=== PATIENT | female | born 1950 | race Hispanic/Latino ===

== ENCOUNTER 2019-07-21 18:06 | Emergency (ER) | payer BC ==
[~2019-07-21] VITALS: Ht 144.8 cm; Wt 60.8 kg
--- OUTSIDE RECORDS SUMMARY | 2019-07-21 18:10 | XMS REPORT ---
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 Allergies, Adverse Reactions, Alerts Allergy Name Allergy Type Status Severity Reaction(s) Onset Date Inactive Date Treating Clinician Comments heparin DA Active SV 2019-06-26 00:00:00 heparin DA Active SV 2019-06-23 00:00:00 No Known Allergies DA Active U 2019-06-08 00:00:00 No Known Allergies DA Active U 2014-03-23 00:00:00 Medications This patient has no known medications. Results Test Description Test Time Test Comments Text Results Atomic Results Result Comments GLUBED 2019-06-29 18:39:00 GLUBED (test code=GLUBED) 182 mg/dL 74-106 Performed by certified leak operator paraffin plant at [facility] [id number] 13:12:00* Test Item Value Reference Range Comments GLUBED (test code=GLUBED) 178 mg/dL 74-106 Performed by certified leak operator paraffin plant at [facility] [id number] 06:37:00* Test Item Value Reference Range Comments GLUBED (test code=GLUBED) 118 mg/dL 74-106 Performed by certified leak operator paraffin plant at [facility] PROTHROMBIN [id number] 05:58:00* Test Item Value Reference Range Comments PROTHROMBIN TIME PATIENT (test code=PTP) 28.5 seconds 9.0-14.0 INTERNATIONAL NORMAL RATIO (test code=INR) 2.4 0.8-1.2 The therapeutic range for oral anticoagulant therapy formost indications is an international normalized ratio (INR)of between 2.0 and 3.0. The recommended therapeutic INRrange for various clinical situations is listed below: Clinical Situation INR range Pulmonary e mbolism treatment (2.0-3.0)Venous thrombosis treatmentVenous thrombosis prophylaxis (high risk surgery)Prevention of systemic embolism from: Acute myocardial infarction Valvular heart disease Atrial fibrillation Mechanical prosthetic heart valves (2.5-3.5) IS PATIENT ON ANTICOAGULANTS? YLIST ANTICOAGULANTS COUMADIN ASPIRIN PLAVIXCBC W/AUTO [id number] 05:50:00* Test Item Value Reference Range Comments WHITE BLOOD CELL (test code=WBC) 9.7 K/mm3 4.5-12.5 RED BLOOD CELL (test code=RBC) 3.75 mill/mm3 3.7-5.2 HEMOGLOBIN (test code=HGB) 10.2 gram/dL 11.5-15.5 HEMATOCRIT (test code=HCT) 32.4 % 36.0-46.0 MEAN CELL VOLUME (test code=MCV) 86.4 fL 80-98 MEAN CELL HGB (test code=MCH) 27.2 picogram 27.0-33.0 MEAN CELL HGB CONCETRATION (test code=MCHC) 31.5 gram/dL 33.0-36.0 RED CELL DISTRIBUTION WIDTH (test code=RDW) 14.9 % 11.6-16.2 RED CELL DISTRIBUTION WIDTH SD (test code=RDW-SD) 46.1 fL 37.0-51.0 PLATELET COUNT (test code=PLT) 503 K/mm3 150-450 MEAN PLATELET VOLUME (test code=MPV) 9.7 fL 6.7-11.0 NEUTROPHIL % (test code=NT%) 59.1 % 39.0-69.0 IMMATURE GRANULOCYTE % (test code=IG%) 0.3 % 0.0-5.0 LYMPHOCYTE % (test code=LY%) 28.1 % 25.0-55.0 MONOCYTE % (test code=MO%) 7.5 % 0.0-10.0 EOSINOPHIL % (test code=EO%) 4.3 % 0.0-5.0 BASOPHIL % (test code=BA%) 0.7 % 0.0-1.0 NUCLEATED RBC % (test code=NRBC%) 0.0 % 0-0 NEUTROPHIL # (test code=NT#) 5.75 K/mm3 1.8-7.7 IMMATURE GRANULOCYTE # (test code=IG#) 0.03 x10 3/uL 0-0.03 LYMPHOCYTE # (test code=LY#) 2.73 K/mm3 1.0-5.0 MONOCYTE # (test code=MO#) 0.73 K/mm3 0-0.8 EOSINOPHIL # (test code=EO#) 0.42 K/mm3 0.0-0.5 BASOPHIL # (test code=BA#) 0.07 K/mm3 0.0-0.2 NUCLEATED RBC # (test code=NRBC#) 0.00 K/mm3 0.0-0.1 MANUAL DIFF REQUIRED (test code=MDIFF) NO [id number] 20:48:00* Test Item Value Reference Range Comments GLUBED (test code=GLUBED) 152 mg/dL 74-106 Performed by certified leak operator paraffin plant at [facility] [id number] 17:17:00* Test Item Value Reference Range Comments GLUBED (test code=GLUBED) 86 mg/dL 74-106 Performed by certified leak operator paraffin plant at [facility] PROTHROMBIN [id number] 13:42:00* Test Item Value Reference Range Comments PROTHROMBIN TIME PATIENT (test code=PTP) 43.9 seconds 9.0-14.0 INTERNATIONAL NORMAL RATIO (test code=INR) 3.7 0.8-1.2 The therapeutic range for oral anticoagulant therapy formost indications is an international normalized ratio (INR)of between 2.0 and 3.0. The recommended therapeutic INRrange for various clinical situations is listed below: Clinical Situation INR range Pulmonary e mbolism treatment (2.0-3.0)Venous thrombosis treatmentVenous thrombosis prophylaxis (high risk surgery)Prevention of systemic embolism from: Acute myocardial infarction Valvular heart disease Atrial fibrillation Mechanical prosthetic heart valves (2.5-3.5) IS PATIENT ON ANTICOAGULANTS? YLIST ANTICOAGULANTS [id number] 13:21:00* Test Item Value Reference Range Comments GLUBED (test code=GLUBED) 315 mg/dL 74-106 Performed by certified leak operator paraffin plant at [facility] THROMBOPLASTIN TIME [id number] 08:02:00* Test Item Value Reference Range Comments THROMBOPLASTIN TIME PARTIAL (test code=PTT) 89.6 seconds 25.0-36.5 Results called to [id number] by MUSHTAQ 06/28/19 0802Critical results verified and read back by Nurse? Y IS PATIENT ON ANTICOAGULANTS? YLIST ANTICOAGULANTS COUMADIN ASPIRIN [id number] 07:17:00* Test Item Value Reference Range Comments GLUBED (test code=GLUBED) 190 mg/dL 74-106 [facility] certified leak operator paraffin [facility] PROTHROMBIN [id number] 07:11:00* Test Item Value Reference Range Comments PROTHROMBIN TIME PATIENT (test code=PTP) 39.8 seconds 9.0-14.0 INTERNATIONAL NORMAL RATIO (test code=INR) 3.4 0.8-1.2 The therapeutic range for oral anticoagulant therapy formost indications is an international normalized ratio (INR)of between 2.0 and 3.0. The recommended therapeutic INRrange for various clinical situations is listed below: Clinical Situation INR range Pulmonary e mbolism treatment (2.0-3.0)Venous thrombosis treatmentVenous thrombosis prophylaxis (high risk surgery)Prevention of systemic embolism from: Acute myocardial infarction Valvular heart disease Atrial fibrillation Mechanical prosthetic heart valves (2.5-3.5) IS PATIENT ON ANTICOAGULANTS? YLIST ANTICOAGULANTS COUMADIN PLAVIX A SPIRINTHROMBOPLASTIN TIME [id number] 02:29:00* Test Item Value Reference Range Comments THROMBOPLASTIN TIME PARTIAL (test code=PTT) 92.5 seconds 25.0-36.5 Results called to [id number] by ZARAAGSurendra 06/28/19 0229Critical results verified and read back by Nurse? Y IS PATIENT ON ANTICOAGULANTS? YLIST ANTICOAGULANTS PLAVIX ASPIRIN CO [id number] 21:49:00* Test Item Value Reference Range Comments GLUBED (test code=GLUBED) 180 mg/dL 74-106 [facility] certified leak operator paraffin plant [facility] [id number] 18:45:00* Test Item Value Reference Range Comments GLUBED (test code=GLUBED) 142 mg/dL 74-106 Performed by certified leak operator paraffin plant at [facility] CBC W/AUTO [id number] 14:10:00* Test Item Value Reference Range Comments WHITE BLOOD CELL (test code=WBC) 9.7 K/mm3 4.5-12.5 RED BLOOD CELL (test code=RBC) 3.89 mill/mm3 3.7-5.2 HEMOGLOBIN (test code=HGB) 10.5 gram/dL 11.5-15.5 HEMATOCRIT (test code=HCT) 33.5 % 36.0-46.0 MEAN CELL VOLUME (test code=MCV) 86.1 fL 80-98 MEAN CELL HGB (test code=MCH) 27.0 picogram 27.0-33.0 MEAN CELL HGB CONCETRATION (test code=MCHC) 31.3 gram/dL 33.0-36.0 RED CELL DISTRIBUTION WIDTH (test code=RDW) 15.1 % 11.6-16.2 RED CELL DISTRIBUTION WIDTH SD (test code=RDW-SD) 46.2 fL 37.0-51.0 PLATELET COUNT (test code=PLT) 551 K/mm3 150-450 MEAN PLATELET VOLUME (test code=MPV) 9.8 fL 6.7-11.0 NEUTROPHIL % (test code=NT%) 60.8 % 39.0-69.0 IMMATURE GRANULOCYTE % (test code=IG%) 0.5 % 0.0-5.0 LYMPHOCYTE % (test code=LY%) 25.6 % 25.0-55.0 MONOCYTE % (test code=MO%) 6.9 % 0.0-10.0 EOSINOPHIL % (test code=EO%) 5.7 % 0.0-5.0 BASOPHIL % (test code=BA%) 0.5 % 0.0-1.0 NUCLEATED RBC % (test code=NRBC%) 0.0 % 0-0 NEUTROPHIL # (test code=NT#) 5.88 K/mm3 1.8-7.7 IMMATURE GRANULOCYTE # (test code=IG#) 0.05 x10 3/uL 0-0.03 LYMPHOCYTE # (test code=LY#) 2.48 K/mm3 1.0-5.0 MONOCYTE # (test code=MO#) 0.67 K/mm3 0-0.8 EOSINOPHIL # (test code=EO#) 0.55 K/mm3 0.0-0.5 BASOPHIL # (test code=BA#) 0.05 K/mm3 0.0-0.2 NUCLEATED RBC # (test code=NRBC#) 0.00 K/mm3 0.0-0.1 [id number] 13:16:00* Test Item Value Reference Range Comments GLUBED (test code=GLUBED) 225 mg/dL 74-106 Performed by certified leak operator paraffin plant at [facility] PROTHROMBIN [id number] 06:03:00* Test Item Value Reference Range Comments PROTHROMBIN TIME PATIENT (test code=PTP) 41.0 seconds 9.0-14.0 INTERNATIONAL NORMAL RATIO (test code=INR) 3.5 0.8-1.2 The therapeutic range for oral anticoagulant therapy formost indications is an international normalized ratio (INR)of between 2.0 and 3.0. The recommended therapeutic INRrange for various clinical situations is listed below: Clinical Situation INR range Pulmonary e mbolism treatment (2.0-3.0)Venous thrombosis treatmentVenous thrombosis prophylaxis (high risk surgery)Prevention of systemic embolism from: Acute myocardial infarction Valvular heart disease Atrial fibrillation Mechanical prosthetic heart valves (2.5-3.5) IS PATIENT ON ANTICOAGULANTS? YLIST ANTICOAGULANTS COUMADIN PLAVIX A SPIRINTHROMBOPLASTIN TIME [id number] 06:03:00* Test Item Value Reference Range Comments THROMBOPLASTIN TIME PARTIAL (test code=PTT) 92.9 seconds 25.0-36.5 Results called to [id number] by ZARAAGSurendra 06/27/19 0602Critical results verified and read back by Nurse? Y IS PATIENT ON ANTICOAGULANTS? YLIST ANTICOAGULANTS COUMADIN PLAVIX A SPIRINPROTHROMBIN [id number] 05:46:00* Test Item Value Reference Range Comments PROTHROMBIN TIME PATIENT (test code=PTP) 41.0 seconds 9.0-14.0 INTERNATIONAL NORMAL RATIO (test code=INR) 3.5 0.8-1.2 The therapeutic range for oral anticoagulant therapy formost indications is an international normalized ratio (INR)of between 2.0 and 3.0. The recommended therapeutic INRrange for various clinical situations is listed below: Clinical Situation INR range Pulmonary e mbolism treatment (2.0-3.0)Venous thrombosis treatmentVenous thrombosis prophylaxis (high risk surgery)Prevention of systemic embolism from: Acute myocardial infarction Valvular heart disease Atrial fibrillation Mechanical prosthetic heart valves (2.5-3.5) IS PATIENT ON ANTICOAGULANTS? YLIST ANTICOAGULANTS COUMADIN PLAVIX A SPIRINTHROMBOPLASTIN TIME [id number] 05:46:00* Test Item Value Reference Range Comments THROMBOPLASTIN TIME PARTIAL (test code=PTT) seconds 25.0-36.5 IS PATIENT ON ANTICOAGULANTS? YLIST ANTICOAGULANTS COUMADIN PLAVIX A [id number] 05:43:00* Test Item Value Reference Range Comments GLUBED (test code=GLUBED) 166 mg/dL 74-106 Performed by certified leak operator paraffin plant at [facility] [id number] 21:25:00* Test Item Value Reference Range Comments GLUBED (test code=GLUBED) 197 mg/dL 74-106 [facility] certified leak operator paraffin plant [facility] [id number] 17:32:00* Test Item Value Reference Range Comments GLUBED (test code=GLUBED) 88 mg/dL 74-106 Performed by certified leak operator paraffin plant at [facility] COMPREHENSIVE METABOLIC [id number] 15:10:00* Test Item Value Reference Range Comments SODIUM (test code=NA) 144 mmol/L 136-145 POTASSIUM (test code=K) 3.8 mmol/L 3.5-5.1 CHLORIDE (test code=CL) 112.0 mmol/L 98-107 CARBON DIOXIDE (test code=CO2) 25.0 mmol/L 21-32 ANION GAP (test code=GAP) 10.8 10-20 GLUCOSE (test code=GLU) 149 mg/dL 74-106 BLOOD UREA NITROGEN (test code=BUN) 14 mg/dL 7-18 GLOMERULAR FILTRATION RATE (test code=GFR) > 60 mL/min >=60 Estimated GFR by using Modified MDRD formula.Chronic kidney disease is defined as either kidney damageor GFR <60 mL/min/1.73 m2 for >3 months. CREATININE (test code=CREAT) 0.60 mg/dL 0.55-1.02 Note change in reference range due to change in reagent. BUN/CREATININE RATIO (test code=BUN/CREA) 21.8 10-20 TOTAL PROTEIN (test code=PROT) 6.5 gram/dL 6.4-8.2 ALBUMIN (test code=ALB) 2.7 g/dL 3.4-5.0 GLOBULIN (test code=GLOB) 3.8 gram/dL 2.7-4.2 ALBUMIN/GLOBULIN RATIO (test code=A/G) 0.7 0.75-1.50 CALCIUM (test code=CA) 8.5 mg/dL 8.5-10.1 BILIRUBIN TOTAL (test code=BILT) 0.40 mg/dL 0.0-1.0 SGOT/AST (test code=AST) 14 IUnit/L 15-37 SGPT/ALT (test code=ALT) 22 IUnit/L 12-78 ALKALINE PHOSPHATASE TOTAL (test code=ALKP) 132 IUnit/L 45-117 Note change in reference range due to change in reagent. COMPREHENSIVE METABOLIC [id number] 15:00:00* Test Item Value Reference Range Comments SODIUM (test code=NA) 144 mmol/L 136-145 POTASSIUM (test code=K) 3.8 mmol/L 3.5-5.1 CHLORIDE (test code=CL) 112.0 mmol/L 98-107 CARBON DIOXIDE (test code=CO2) mmol/L 21-32 ANION GAP (test code=GAP) 10-20 GLUCOSE (test code=GLU) mg/dL 74-106 BLOOD UREA NITROGEN (test code=BUN) mg/dL 7-18 GLOMERULAR FILTRATION RATE (test code=GFR) mL/min >=60 CREATININE (test code=CREAT) mg/dL 0.55-1.02 BUN/CREATININE RATIO (test code=BUN/CREA) 10-20 TOTAL PROTEIN (test code=PROT) gram/dL 6.4-8.2 ALBUMIN (test code=ALB) g/dL 3.4-5.0 GLOBULIN (test code=GLOB) gram/dL 2.7-4.2 ALBUMIN/GLOBULIN RATIO (test code=A/G) 0.75-1.50 CALCIUM (test code=CA) mg/dL 8.5-10.1 BILIRUBIN TOTAL (test code=BILT) mg/dL 0.0-1.0 SGOT/AST (test code=AST) IUnit/L 15-37 SGPT/ALT (test code=ALT) IUnit/L 12-78 ALKALINE PHOSPHATASE TOTAL (test code=ALKP) IUnit/L 45-117 [id number] 12:37:00* Test Item Value Reference Range Comments GLUBED (test code=GLUBED) 255 mg/dL 74-106 Performed by certified leak operator paraffin plant at [facility] PROTHROMBIN [id number] 07:48:00* Test Item Value Reference Range Comments PROTHROMBIN TIME PATIENT (test code=PTP) 25.0 seconds 9.0-14.0 INTERNATIONAL NORMAL RATIO (test code=INR) 2.1 0.8-1.2 The therapeutic range for oral anticoagulant therapy formost indications is an international normalized ratio (INR)of between 2.0 and 3.0. The recommended therapeutic INRrange for various clinical situations is listed below: Clinical Situation INR range Pulmonary e mbolism treatment (2.0-3.0)Venous thrombosis treatmentVenous thrombosis prophylaxis (high risk surgery)Prevention of systemic embolism from: Acute myocardial infarction Valvular heart disease Atrial fibrillation Mechanical prosthetic heart valves (2.5-3.5) PT'S DAUGHTER WANTS US TO COME BACK LATER TEXTED PAYALEJECHENCHO [id number] @0448 JUAN FRANCISCO MUIR1 608IS PATIENT ON ANTICOAGULANTS? YLIST ANTICOAGULANTS COUMADI N ASPIRIN [id number] 06:59:00* Test Item Value Reference Range Comments GLUBED (test code=GLUBED) 141 mg/dL 74-106 Performed by certified leak operator paraffin plant at [facility] [id number] 21:25:00* Test Item Value Reference Range Comments GLUBED (test code=GLUBED) 160 mg/dL 74-106 Performed by certified leak operator paraffin plant at [facility] [id number] 16:59:00* Test Item Value Reference Range Comments GLUBED (test code=GLUBED) 136 mg/dL 74-106 Performed by certified leak operator paraffin plant at [facility] [id number] 16:59:00* Test Item Value Reference Range Comments GLUBED (test code=GLUBED) 116 mg/dL 74-106 Performed by certified leak operator paraffin plant at [facility] PROTHROMBIN [id number] 09:01:00* Test Item Value Reference Range Comments PROTHROMBIN TIME PATIENT (test code=PTP) 18.7 seconds 9.0-14.0 INTERNATIONAL NORMAL RATIO (test code=INR) 1.6 0.8-1.2 The therapeutic range for oral anticoagulant therapy formost indications is an international normalized ratio (INR)of between 2.0 and 3.0. The recommended therapeutic INRrange for various clinical situations is listed below: Clinical Situation INR range Pulmonary e mbolism treatment (2.0-3.0)Venous thrombosis treatmentVenous thrombosis prophylaxis (high risk surgery)Prevention of systemic embolism from: Acute myocardial infarction Valvular heart disease Atrial fibrillation Mechanical prosthetic heart valves (2.5-3.5) IS PATIENT ON ANTICOAGULANTS? YLIST ANTICOAGULANTS COUMADINTHROMBOPLASTIN TIME [id number] 06:18:00* Test Item Value Reference Range Comments THROMBOPLASTIN TIME PARTIAL (test code=PTT) 75.6 seconds 25.0-36.5 IS PATIENT ON ANTICOAGULANTS? YLIST ANTICOAGULANTS ARGOTROBAN DRIPCBC W/AUTO [id number] 06:15:00* Test Item Value Reference Range Comments WHITE BLOOD CELL (test code=WBC) 8.7 K/mm3 4.5-12.5 RED BLOOD CELL (test code=RBC) 3.62 mill/mm3 3.7-5.2 HEMOGLOBIN (test code=HGB) 9.8 gram/dL 11.5-15.5 HEMATOCRIT (test code=HCT) 30.8 % 36.0-46.0 MEAN CELL VOLUME (test code=MCV) 85.1 fL 80-98 MEAN CELL HGB (test code=MCH) 27.1 picogram 27.0-33.0 MEAN CELL HGB CONCETRATION (test code=MCHC) 31.8 gram/dL 33.0-36.0 RED CELL DISTRIBUTION WIDTH (test code=RDW) 14.7 % 11.6-16.2 RED CELL DISTRIBUTION WIDTH SD (test code=RDW-SD) 43.8 fL 37.0-51.0 PLATELET COUNT (test code=PLT) 388 K/mm3 150-450 RESULT VERIFIED BY REPEAT ANALYSIS MEAN PLATELET VOLUME (test code=MPV) 10.0 fL 6.7-11.0 NEUTROPHIL % (test code=NT%) 56.9 % 39.0-69.0 IMMATURE GRANULOCYTE % (test code=IG%) 0.5 % 0.0-5.0 LYMPHOCYTE % (test code=LY%) 27.3 % 25.0-55.0 MONOCYTE % (test code=MO%) 8.5 % 0.0-10.0 EOSINOPHIL % (test code=EO%) 6.1 % 0.0-5.0 BASOPHIL % (test code=BA%) 0.7 % 0.0-1.0 NUCLEATED RBC % (test code=NRBC%) 0.0 % 0-0 NEUTROPHIL # (test code=NT#) 4.97 K/mm3 1.8-7.7 IMMATURE GRANULOCYTE # (test code=IG#) 0.04 x10 3/uL 0-0.03 LYMPHOCYTE # (test code=LY#) 2.38 K/mm3 1.0-5.0 MONOCYTE # (test code=MO#) 0.74 K/mm3 0-0.8 EOSINOPHIL # (test code=EO#) 0.53 K/mm3 0.0-0.5 BASOPHIL # (test code=BA#) 0.06 K/mm3 0.0-0.2 NUCLEATED RBC # (test code=NRBC#) 0.00 K/mm3 0.0-0.1 MANUAL DIFF REQUIRED (test code=MDIFF) NO [id number] 05:29:00* Test Item Value Reference Range Comments GLUBED (test code=GLUBED) 115 mg/dL 74-106 Performed by certified leak operator paraffin plant at [facility] [id number] 21:49:00* Test Item Value Reference Range Comments GLUBED (test code=GLUBED) 197 mg/dL 74-106 Performed by certified leak operator paraffin plant at [facility] RETICULOCYTE [id number] 18:19:00* Test Item Value Reference Range Comments RETICULOCYTE COUNT (test code=RETICT) 3.2 % 0.5-2.0 RETIC COUNT ABSOLUTE (test code=RET#) 0.101 mill/mm3 0.016-0.095 IMMATURE RETICULOCYTE FRACTION (test code=IRF) 23.4 % 3.0-15.9 Values above normal range indicate an increase in RBCcellular response from bone marrow. RETICULOCYTE HGB EQUIVALENT (test code=RETHE) 30.4 pg 28.2-35.7 RET-He is a direct estimate of recent functionalavailability of iron in the cell, therefore, decreasedRET-He is indicative of iron deficiency. [id number] 18:19:00* Test Item Value Reference Range Comments HAPTOGLOBIN (test code=HAPT) 250 mg/dL 34-200 Performed At: [facility] [id number] Bello MD Ph:[phone] [id number] 17:58:00* Test Item Value Reference Range Comments GLUBED (test code=GLUBED) 153 mg/dL 74-106 Performed by certified leak operator paraffin plant at [facility] CBC W/AUTO [id number] 17:29:00* Test Item Value Reference Range Comments WHITE BLOOD CELL (test code=WBC) 8.1 K/mm3 4.5-12.5 RED BLOOD CELL (test code=RBC) 3.48 mill/mm3 3.7-5.2 HEMOGLOBIN (test code=HGB) 9.7 gram/dL 11.5-15.5 HEMATOCRIT (test code=HCT) 30.1 % 36.0-46.0 MEAN CELL VOLUME (test code=MCV) 86.5 fL 80-98 MEAN CELL HGB (test code=MCH) 27.9 picogram 27.0-33.0 MEAN CELL HGB CONCETRATION (test code=MCHC) 32.2 gram/dL 33.0-36.0 RED CELL DISTRIBUTION WIDTH (test code=RDW) 14.9 % 11.6-16.2 RED CELL DISTRIBUTION WIDTH SD (test code=RDW-SD) 44.1 fL 37.0-51.0 PLATELET COUNT (test code=PLT) 334 K/mm3 150-450 RESULT VERIFIED BY REPEAT ANALYSIS MEAN PLATELET VOLUME (test code=MPV) 10.1 fL 6.7-11.0 NEUTROPHIL % (test code=NT%) 56.3 % 39.0-69.0 IMMATURE GRANULOCYTE % (test code=IG%) 0.4 % 0.0-5.0 LYMPHOCYTE % (test code=LY%) 28.0 % 25.0-55.0 MONOCYTE % (test code=MO%) 8.3 % 0.0-10.0 EOSINOPHIL % (test code=EO%) 6.3 % 0.0-5.0 BASOPHIL % (test code=BA%) 0.7 % 0.0-1.0 NUCLEATED RBC % (test code=NRBC%) 0.0 % 0-0 NEUTROPHIL # (test code=NT#) 4.57 K/mm3 1.8-7.7 IMMATURE GRANULOCYTE # (test code=IG#) 0.03 x10 3/uL 0-0.03 LYMPHOCYTE # (test code=LY#) 2.27 K/mm3 1.0-5.0 MONOCYTE # (test code=MO#) 0.67 K/mm3 0-0.8 EOSINOPHIL # (test code=EO#) 0.51 K/mm3 0.0-0.5 BASOPHIL # (test code=BA#) 0.06 K/mm3 0.0-0.2 NUCLEATED RBC # (test code=NRBC#) 0.00 K/mm3 0.0-0.1 [id number] 13:42:00* Test Item Value Reference Range Comments GLUBED (test code=GLUBED) 136 mg/dL 74-106 Performed by certified leak operator paraffin plant at [facility] PROTHROMBIN [id number] 09:16:00* Test Item Value Reference Range Comments PROTHROMBIN TIME PATIENT (test code=PTP) 20.0 seconds 9.0-14.0 INTERNATIONAL NORMAL RATIO (test code=INR) 1.7 0.8-1.2 The therapeutic range for oral anticoagulant therapy formost indications is an international normalized ratio (INR)of between 2.0 and 3.0. The recommended therapeutic INRrange for various clinical situations is listed below: Clinical Situation INR range Pulmonary e mbolism treatment (2.0-3.0)Venous thrombosis treatmentVenous thrombosis prophylaxis (high risk surgery)Prevention of systemic embolism from: Acute myocardial infarction Valvular heart disease Atrial fibrillation Mechanical prosthetic heart valves (2.5-3.5) IS PATIENT ON ANTICOAGULANTS? YLIST ANTICOAGULANTS ArgatrobanORDER NEEDS TO BE CANCELLEDTHROMBOPLASTIN TIME [id number] 08:12:00* Test Item Value Reference Range Comments THROMBOPLASTIN TIME PARTIAL (test code=PTT) 77.8 seconds 25.0-36.5 IS PATIENT ON ANTICOAGULANTS? YLIST ANTICOAGULANTS ARGOTROBEN IPGLUBED 2019-06-24 05:11:00* Test Item Value Reference Range Comments GLUBED (test code=GLUBED) 125 mg/dL 74-106 Performed by certified leak operator paraffin plant at [facility] [id number] 21:06:00* Test Item Value Reference Range Comments GLUBED (test code=GLUBED) 130 mg/dL 74-106 Performed by certified leak operator paraffin plant at [facility] [id number] 18:55:00* Test Item Value Reference Range Comments GLUBED (test code=GLUBED) 148 mg/dL 74-106 Performed by certified leak operator paraffin plant at [facility] [id number] 12:58:00* Test Item Value Reference Range Comments GLUBED (test code=GLUBED) 99 mg/dL 74-106 Performed by certified leak operator paraffin plant at [facility] [id number] 10:19:00* Test Item Value Reference Range Comments SODIUM (test code=NA) 145 mmol/L 136-145 THROMBOPLASTIN TIME [id number] 09:35:00* Test Item Value Reference Range Comments THROMBOPLASTIN TIME PARTIAL (test code=PTT) 75.8 seconds 25.0-36.5 IS PATIENT ON ANTICOAGULANTS? YLIST ANTICOAGULANTS ARGOTROBEN DRIPCBC W/AUTO [id number] 09:18:00* Test Item Value Reference Range Comments WHITE BLOOD CELL (test code=WBC) 6.6 K/mm3 4.5-12.5 RED BLOOD CELL (test code=RBC) 3.24 mill/mm3 3.7-5.2 HEMOGLOBIN (test code=HGB) 9.0 gram/dL 11.5-15.5 HEMATOCRIT (test code=HCT) 27.4 % 36.0-46.0 MEAN CELL VOLUME (test code=MCV) 84.6 fL 80-98 MEAN CELL HGB (test code=MCH) 27.8 picogram 27.0-33.0 MEAN CELL HGB CONCETRATION (test code=MCHC) 32.8 gram/dL 33.0-36.0 RED CELL DISTRIBUTION WIDTH (test code=RDW) 14.3 % 11.6-16.2 RED CELL DISTRIBUTION WIDTH SD (test code=RDW-SD) 43.1 fL 37.0-51.0 PLATELET COUNT (test code=PLT) 227 K/mm3 150-450 RESULT VERIFIED BY REPEAT ANALYSIS MEAN PLATELET VOLUME (test code=MPV) 11.0 fL 6.7-11.0 NEUTROPHIL % (test code=NT%) 62.0 % 39.0-69.0 IMMATURE GRANULOCYTE % (test code=IG%) 0.3 % 0.0-5.0 LYMPHOCYTE % (test code=LY%) 25.2 % 25.0-55.0 MONOCYTE % (test code=MO%) 6.7 % 0.0-10.0 EOSINOPHIL % (test code=EO%) 5.0 % 0.0-5.0 BASOPHIL % (test code=BA%) 0.8 % 0.0-1.0 NUCLEATED RBC % (test code=NRBC%) 0.0 % 0-0 NEUTROPHIL # (test code=NT#) 4.08 K/mm3 1.8-7.7 IMMATURE GRANULOCYTE # (test code=IG#) 0.02 x10 3/uL 0-0.03 LYMPHOCYTE # (test code=LY#) 1.66 K/mm3 1.0-5.0 MONOCYTE # (test code=MO#) 0.44 K/mm3 0-0.8 EOSINOPHIL # (test code=EO#) 0.33 K/mm3 0.0-0.5 BASOPHIL # (test code=BA#) 0.05 K/mm3 0.0-0.2 NUCLEATED RBC # (test code=NRBC#) 0.00 K/mm3 0.0-0.1 [id number] 09:11:00* Test Item Value Reference Range Comments GLUBED (test code=GLUBED) 102 mg/dL 74-106 Performed by certified leak operator paraffin plant at [facility] [id number] 05:54:00* Test Item Value Reference Range Comments GLUBED (test code=GLUBED) 77 mg/dL 74-106 Performed by certified leak operator paraffin plant at [facility] CBC W/MANUAL [id number] 22:55:00* Test Item Value Reference Range Comments WHITE BLOOD CELL (test code=WBC) 10.7 K/mm3 4.5-12.5 RED BLOOD CELL (test code=RBC) 3.31 mill/mm3 3.7-5.2 HEMOGLOBIN (test code=HGB) 9.1 gram/dL 11.5-15.5 HEMATOCRIT (test code=HCT) 28.1 % 36.0-46.0 MEAN CELL VOLUME (test code=MCV) 84.9 fL 80-98 MEAN CELL HGB (test code=MCH) 27.5 picogram 27.0-33.0 MEAN CELL HGB CONCETRATION (test code=MCHC) 32.4 gram/dL 33.0-36.0 RED CELL DISTRIBUTION WIDTH (test code=RDW) 14.1 % 11.6-16.2 RED CELL DISTRIBUTION WIDTH SD (test code=RDW-SD) 43.1 fL 37.0-51.0 PLATELET COUNT (test code=PLT) 157 K/mm3 150-450 RESULT VERIFIED BY REPEAT ANALYSIS MEAN PLATELET VOLUME (test code=MPV) 10.8 fL 6.7-11.0 IMMATURE GRANULOCYTE % (test code=IG%) 0.4 % 0.0-5.0 NUCLEATED RBC % (test code=NRBC%) 0.0 % 0-0 NEUTROPHIL # (test code=NT#) 7.81 K/mm3 1.8-7.7 IMMATURE GRANULOCYTE # (test code=IG#) 0.04 x10 3/uL 0-0.03 LYMPHOCYTE # (test code=LY#) 1.94 K/mm3 1.0-5.0 MONOCYTE # (test code=MO#) 0.55 K/mm3 0-0.8 EOSINOPHIL # (test code=EO#) 0.32 K/mm3 0.0-0.5 BASOPHIL # (test code=BA#) 0.06 K/mm3 0.0-0.2 NUCLEATED RBC # (test code=NRBC#) 0.00 K/mm3 0.0-0.1 MANUAL DIFF REQUIRED (test code=MDIFF) YES STAIN ACCEPTABILITY (test code=STN ACCEPTABLE) STAIN ACCEPTABLE TOTAL CELLS COUNTED (test code=TCC) 115 #CELLS SEGMENTED NEUTROPHILS (test code=SEG) 82.6 % 39-69 BAND NEUTROPHIL (test code=BAND) 0 % 0-10 LYMPHOCYTE (test code=LYMPH) 12.2 % 25-55 REACTIVE LYMPH (test code=RELYMPH) 0 % MONOCYTE (test code=MON) 2.6 % 0-10 EOSINOPHIL (test code=EOS) 1.7 % 0.0-5.0 BASOPHIL (test code=BASO) 0.9 % 0-1.0 METAMYELOCYTE (test code=META) 0 % 0-0 MYELOCYTE (test code=MYELO) 0 % 0.0-0.0 PROMYELOCYTE (test code=PROM) 0 % 0-0 MORPHOLOGY COMMENT (test code=MOC) NORMAL PLATELET ESTIMATE (test code=PLTEST) ADEQUATE PLATELET MORPHOLOGY (test code=PLTMORPH) NORMAL IMMATURE FORMS (test code=IMMAT) 0 % 0-0 PT HARDSTICK NOT ABLE TO NOTIFY JILLIAN [email or web address] 06/22/[id number] 20:32:00* Test Item Value Reference Range Comments GLUBED (test code=GLUBED) 166 mg/dL 74-106 Performed by certified leak operator paraffin plant at [facility] [id number] 17:10:00* Test Item Value Reference Range Comments GLUBED (test code=GLUBED) 145 mg/dL 74-106 Performed by certified leak operator paraffin plant at [facility] CBC W/MANUAL [id number] 15:24:00* Test Item Value Reference Range Comments WHITE BLOOD CELL (test code=WBC) 10.7 K/mm3 4.5-12.5 RED BLOOD CELL (test code=RBC) 3.31 mill/mm3 3.7-5.2 HEMOGLOBIN (test code=HGB) 9.1 gram/dL 11.5-15.5 HEMATOCRIT (test code=HCT) 28.1 % 36.0-46.0 MEAN CELL VOLUME (test code=MCV) 84.9 fL 80-98 MEAN CELL HGB (test code=MCH) 27.5 picogram 27.0-33.0 MEAN CELL HGB CONCETRATION (test code=MCHC) 32.4 gram/dL 33.0-36.0 RED CELL DISTRIBUTION WIDTH (test code=RDW) 14.1 % 11.6-16.2 RED CELL DISTRIBUTION WIDTH SD (test code=RDW-SD) 43.1 fL 37.0-51.0 PLATELET COUNT (test code=PLT) 157 K/mm3 150-450 RESULT VERIFIED BY REPEAT ANALYSIS MEAN PLATELET VOLUME (test code=MPV) 10.8 fL 6.7-11.0 IMMATURE GRANULOCYTE % (test code=IG%) 0.4 % 0.0-5.0 NUCLEATED RBC % (test code=NRBC%) 0.0 % 0-0 NEUTROPHIL # (test code=NT#) 7.81 K/mm3 1.8-7.7 IMMATURE GRANULOCYTE # (test code=IG#) 0.04 x10 3/uL 0-0.03 LYMPHOCYTE # (test code=LY#) 1.94 K/mm3 1.0-5.0 MONOCYTE # (test code=MO#) 0.55 K/mm3 0-0.8 EOSINOPHIL # (test code=EO#) 0.32 K/mm3 0.0-0.5 BASOPHIL # (test code=BA#) 0.06 K/mm3 0.0-0.2 NUCLEATED RBC # (test code=NRBC#) 0.00 K/mm3 0.0-0.1 MANUAL DIFF REQUIRED (test code=MDIFF) YES STAIN ACCEPTABILITY (test code=STN ACCEPTABLE) TOTAL CELLS COUNTED (test code=TCC) #CELLS SEGMENTED NEUTROPHILS (test code=SEG) % 39-69 LYMPHOCYTE (test code=LYMPH) % 25-55 MONOCYTE (test code=MON) % 0-10 EOSINOPHIL (test code=EOS) % 0.0-5.0 CABOT RINGS (test code=CAB) MORPHOLOGY COMMENT (test code=MOC) PLATELET ESTIMATE (test code=PLTEST) PLATELET MORPHOLOGY (test code=PLTMORPH) PT HARDSTICK NOT ABLE TO NOTIFY JILLIAN [email or web address] 06/22/[id number] W/MANUAL DIFF 2019-06-22 15:24:00* Test Item Value Reference Range Comments WHITE BLOOD CELL (test code=WBC) 10.7 K/mm3 4.5-12.5 RED BLOOD CELL (test code=RBC) 3.31 mill/mm3 3.7-5.2 HEMOGLOBIN (test code=HGB) 9.1 gram/dL 11.5-15.5 HEMATOCRIT (test code=HCT) 28.1 % 36.0-46.0 MEAN CELL VOLUME (test code=MCV) 84.9 fL 80-98 MEAN CELL HGB (test code=MCH) 27.5 picogram 27.0-33.0 MEAN CELL HGB CONCETRATION (test code=MCHC) 32.4 gram/dL 33.0-36.0 RED CELL DISTRIBUTION WIDTH (test code=RDW) 14.1 % 11.6-16.2 RED CELL DISTRIBUTION WIDTH SD (test code=RDW-SD) 43.1 fL 37.0-51.0 PLATELET COUNT (test code=PLT) 157 K/mm3 150-450 RESULT VERIFIED BY REPEAT ANALYSIS MEAN PLATELET VOLUME (test code=MPV) 10.8 fL 6.7-11.0 IMMATURE GRANULOCYTE % (test code=IG%) 0.4 % 0.0-5.0 NUCLEATED RBC % (test code=NRBC%) 0.0 % 0-0 NEUTROPHIL # (test code=NT#) 7.81 K/mm3 1.8-7.7 IMMATURE GRANULOCYTE # (test code=IG#) 0.04 x10 3/uL 0-0.03 LYMPHOCYTE # (test code=LY#) 1.94 K/mm3 1.0-5.0 MONOCYTE # (test code=MO#) 0.55 K/mm3 0-0.8 EOSINOPHIL # (test code=EO#) 0.32 K/mm3 0.0-0.5 BASOPHIL # (test code=BA#) 0.06 K/mm3 0.0-0.2 NUCLEATED RBC # (test code=NRBC#) 0.00 K/mm3 0.0-0.1 MANUAL DIFF REQUIRED (test code=MDIFF) YES STAIN ACCEPTABILITY (test code=STN ACCEPTABLE) TOTAL CELLS COUNTED (test code=TCC) #CELLS SEGMENTED NEUTROPHILS (test code=SEG) % 39-69 LYMPHOCYTE (test code=LYMPH) % 25-55 MONOCYTE (test code=MON) % 0-10 EOSINOPHIL (test code=EOS) % 0.0-5.0 MORPHOLOGY COMMENT (test code=MOC) PLATELET ESTIMATE (test code=PLTEST) PLATELET MORPHOLOGY (test code=PLTMORPH) PT HARDSTICK NOT ABLE TO NOTIFY JILLIAN [email or web address] 06/22/[id number] W/MANUAL DIFF 2019-06-22 15:24:00* Test Item Value Reference Range Comments WHITE BLOOD CELL (test code=WBC) 10.7 K/mm3 4.5-12.5 RED BLOOD CELL (test code=RBC) 3.31 mill/mm3 3.7-5.2 HEMOGLOBIN (test code=HGB) 9.1 gram/dL 11.5-15.5 HEMATOCRIT (test code=HCT) 28.1 % 36.0-46.0 MEAN CELL VOLUME (test code=MCV) 84.9 fL 80-98 MEAN CELL HGB (test code=MCH) 27.5 picogram 27.0-33.0 MEAN CELL HGB CONCETRATION (test code=MCHC) 32.4 gram/dL 33.0-36.0 RED CELL DISTRIBUTION WIDTH (test code=RDW) 14.1 % 11.6-16.2 RED CELL DISTRIBUTION WIDTH SD (test code=RDW-SD) 43.1 fL 37.0-51.0 PLATELET COUNT (test code=PLT) 157 K/mm3 150-450 RESULT VERIFIED BY REPEAT ANALYSIS MEAN PLATELET VOLUME (test code=MPV) 10.8 fL 6.7-11.0 IMMATURE GRANULOCYTE % (test code=IG%) 0.4 % 0.0-5.0 NUCLEATED RBC % (test code=NRBC%) 0.0 % 0-0 NEUTROPHIL # (test code=NT#) 7.81 K/mm3 1.8-7.7 IMMATURE GRANULOCYTE # (test code=IG#) 0.04 x10 3/uL 0-0.03 LYMPHOCYTE # (test code=LY#) 1.94 K/mm3 1.0-5.0 MONOCYTE # (test code=MO#) 0.55 K/mm3 0-0.8 EOSINOPHIL # (test code=EO#) 0.32 K/mm3 0.0-0.5 BASOPHIL # (test code=BA#) 0.06 K/mm3 0.0-0.2 NUCLEATED RBC # (test code=NRBC#) 0.00 K/mm3 0.0-0.1 MANUAL DIFF REQUIRED (test code=MDIFF) YES STAIN ACCEPTABILITY (test code=STN ACCEPTABLE) TOTAL CELLS COUNTED (test code=TCC) #CELLS SEGMENTED NEUTROPHILS (test code=SEG) % 39-69 LYMPHOCYTE (test code=LYMPH) % 25-55 MONOCYTE (test code=MON) % 0-10 MORPHOLOGY COMMENT (test code=MOC) PLATELET ESTIMATE (test code=PLTEST) PLATELET MORPHOLOGY (test code=PLTMORPH) PT HARDSTICK NOT ABLE TO NOTIFY RN V.[email or web address].[email or web address] 06/22/[id number] W/MANUAL DIFF 2019-06-22 15:23:00* Test Item Value Reference Range Comments WHITE BLOOD CELL (test code=WBC) 10.7 K/mm3 4.5-12.5 RED BLOOD CELL (test code=RBC) 3.31 mill/mm3 3.7-5.2 HEMOGLOBIN (test code=HGB) 9.1 gram/dL 11.5-15.5 HEMATOCRIT (test code=HCT) 28.1 % 36.0-46.0 MEAN CELL VOLUME (test code=MCV) 84.9 fL 80-98 MEAN CELL HGB (test code=MCH) 27.5 picogram 27.0-33.0 MEAN CELL HGB CONCETRATION (test code=MCHC) 32.4 gram/dL 33.0-36.0 RED CELL DISTRIBUTION WIDTH (test code=RDW) 14.1 % 11.6-16.2 RED CELL DISTRIBUTION WIDTH SD (test code=RDW-SD) 43.1 fL 37.0-51.0 PLATELET COUNT (test code=PLT) 157 K/mm3 150-450 RESULT VERIFIED BY REPEAT ANALYSIS MEAN PLATELET VOLUME (test code=MPV) 10.8 fL 6.7-11.0 IMMATURE GRANULOCYTE % (test code=IG%) 0.4 % 0.0-5.0 NUCLEATED RBC % (test code=NRBC%) 0.0 % 0-0 NEUTROPHIL # (test code=NT#) 7.81 K/mm3 1.8-7.7 IMMATURE GRANULOCYTE # (test code=IG#) 0.04 x10 3/uL 0-0.03 LYMPHOCYTE # (test code=LY#) 1.94 K/mm3 1.0-5.0 MONOCYTE # (test code=MO#) 0.55 K/mm3 0-0.8 EOSINOPHIL # (test code=EO#) 0.32 K/mm3 0.0-0.5 BASOPHIL # (test code=BA#) 0.06 K/mm3 0.0-0.2 NUCLEATED RBC # (test code=NRBC#) 0.00 K/mm3 0.0-0.1 MANUAL DIFF REQUIRED (test code=MDIFF) YES STAIN ACCEPTABILITY (test code=STN ACCEPTABLE) TOTAL CELLS COUNTED (test code=TCC) #CELLS SEGMENTED NEUTROPHILS (test code=SEG) % 39-69 LYMPHOCYTE (test code=LYMPH) % 25-55 MONOCYTE (test code=MON) % 0-10 EOSINOPHIL (test code=EOS) % 0.0-5.0 CABOT RINGS (test code=CAB) MORPHOLOGY COMMENT (test code=MOC) PLATELET ESTIMATE (test code=PLTEST) PLATELET MORPHOLOGY (test code=PLTMORPH) PT HARDSTICK NOT ABLE TO NOTIFY JILLIAN [email or web address] 06/22/[id number] W/MANUAL DIFF 2019-06-22 15:23:00* Test Item Value Reference Range Comments WHITE BLOOD CELL (test code=WBC) 10.7 K/mm3 4.5-12.5 RED BLOOD CELL (test code=RBC) 3.31 mill/mm3 3.7-5.2 HEMOGLOBIN (test code=HGB) 9.1 gram/dL 11.5-15.5 HEMATOCRIT (test code=HCT) 28.1 % 36.0-46.0 MEAN CELL VOLUME (test code=MCV) 84.9 fL 80-98 MEAN CELL HGB (test code=MCH) 27.5 picogram 27.0-33.0 MEAN CELL HGB CONCETRATION (test code=MCHC) 32.4 gram/dL 33.0-36.0 RED CELL DISTRIBUTION WIDTH (test code=RDW) 14.1 % 11.6-16.2 RED CELL DISTRIBUTION WIDTH SD (test code=RDW-SD) 43.1 fL 37.0-51.0 PLATELET COUNT (test code=PLT) 157 K/mm3 150-450 RESULT VERIFIED BY REPEAT ANALYSIS MEAN PLATELET VOLUME (test code=MPV) 10.8 fL 6.7-11.0 IMMATURE GRANULOCYTE % (test code=IG%) 0.4 % 0.0-5.0 NUCLEATED RBC % (test code=NRBC%) 0.0 % 0-0 NEUTROPHIL # (test code=NT#) 7.81 K/mm3 1.8-7.7 IMMATURE GRANULOCYTE # (test code=IG#) 0.04 x10 3/uL 0-0.03 LYMPHOCYTE # (test code=LY#) 1.94 K/mm3 1.0-5.0 MONOCYTE # (test code=MO#) 0.55 K/mm3 0-0.8 EOSINOPHIL # (test code=EO#) 0.32 K/mm3 0.0-0.5 BASOPHIL # (test code=BA#) 0.06 K/mm3 0.0-0.2 NUCLEATED RBC # (test code=NRBC#) 0.00 K/mm3 0.0-0.1 MANUAL DIFF REQUIRED (test code=MDIFF) YES STAIN ACCEPTABILITY (test code=STN ACCEPTABLE) TOTAL CELLS COUNTED (test code=TCC) #CELLS SEGMENTED NEUTROPHILS (test code=SEG) % 39-69 LYMPHOCYTE (test code=LYMPH) % 25-55 MONOCYTE (test code=MON) % 0-10 EOSINOPHIL (test code=EOS) % 0.0-5.0 CABOT RINGS (test code=CAB) MORPHOLOGY COMMENT (test code=MOC) PLATELET ESTIMATE (test code=PLTEST) PLATELET MORPHOLOGY (test code=PLTMORPH) PT HARDSTICK NOT ABLE TO NOTIFY JILLIAN [email or web address] [id number] METABOLIC PANEL 2019-06-22 14:13:00* Test Item Value Reference Range Comments SODIUM (test code=NA) 147 mmol/L 136-145 POTASSIUM (test code=K) 3.8 mmol/L 3.5-5.1 CHLORIDE (test code=CL) 116.0 mmol/L 98-107 CARBON DIOXIDE (test code=CO2) 19.0 mmol/L 21-32 ANION GAP (test code=GAP) 15.8 10-20 GLUCOSE (test code=GLU) 116 mg/dL 74-106 BLOOD UREA NITROGEN (test code=BUN) 8 mg/dL 7-18 GLOMERULAR FILTRATION RATE (test code=GFR) > 60 mL/min >=60 Estimated GFR by using Modified MDRD formula.Chronic kidney disease is defined as either kidney damageor GFR <60 mL/min/1.73 m2 for >3 months. CREATININE (test code=CREAT) 0.60 mg/dL 0.55-1.02 Note change in reference range due to change in reagent. BUN/CREATININE RATIO (test code=BUN/CREA) 13.3 10-20 CALCIUM (test code=CA) 8.1 mg/dL 8.5-10.1 BASIC METABOLIC [id number] 14:09:00* Test Item Value Reference Range Comments SODIUM (test code=NA) 147 mmol/L 136-145 POTASSIUM (test code=K) 3.8 mmol/L 3.5-5.1 CHLORIDE (test code=CL) 116.0 mmol/L 98-107 CARBON DIOXIDE (test code=CO2) mmol/L 21-32 ANION GAP (test code=GAP) 10-20 GLUCOSE (test code=GLU) mg/dL 74-106 BLOOD UREA NITROGEN (test code=BUN) mg/dL 7-18 GLOMERULAR FILTRATION RATE (test code=GFR) mL/min >=60 CREATININE (test code=CREAT) mg/dL 0.55-1.02 BUN/CREATININE RATIO (test code=BUN/CREA) 10-20 CALCIUM (test code=CA) 8.1 mg/dL 8.5-10.1 [id number] 13:05:00* Test Item Value Reference Range Comments GLUBED (test code=GLUBED) 169 mg/dL 74-106 Performed by certified leak operator paraffin plant at [facility] - CT HEAD/BRAIN W/O [id number] 10:09:00 Name: NADYA AQUINO [facility] : 1950 Age/S: 69 / F [address] [facility] Unit #: [id number] Loc: [place] [address] Phys: Dandy Lopez MD Acct: [id number] Dis Date: Status: ADM IN PHONE #: [phone] Exam Date: 06/22/2019958 FAX #: [phone] Reason: BLURRED VISION EXAMS: CPT CODE: [id number] CT HEAD/BRAIN W/O CONT [id number] HISTORY: Blurry vision. COMPARISON: March 23, 2014. CT brain without contrast: Automated exposure control. No acute intracranial bleeds or extra-axial collections are noted. No acute territorial vascular infarction is noted. The sulci, gyri, ventricles and subarachnoid spaces and the basilar cisterns are normal for patient's age. No herniation or hydrocephalus or midline shift is noted. Mild periventricular ischemic gliosis is noted. Age-appropriate atrophy is noted as well. Portions of the visualized paranasal sinuses are normal. No obvious bony calvarial defect is noted. IMPRESSION: No acute intracranial bleeds or extra-axial collections. No acute territorial vascular infarction. No herniation or hydroc ephalus or midline shift. Chronic white matter ischemic disea se and atrophy . at 1009 Reported and signed by : Morgan Felton M.D. CC: Dandy Lopez MD Technologist:Jeanie Ryan RT(R),CT; CTDI: DLP: Tr nscb Date/Time: 06/22/2019 (1009) [email or web address] Orig Print D/ T: S: 06/22/2019 (1012) PAGE 1 Signed Report THROMBOPLASTIN TIME [id number] 09:10:00* Test Item Value Reference Range Comments THROMBOPLASTIN TIME PARTIAL (test code=PTT) 71.7 seconds 25.0-36.5 IS PATIENT ON ANTICOAGULANTS? YLIST ANTICOAGULANTS ARGATROBANGLUBED 2019-06-22 06:18:00* Test Item Value Reference Range Comments GLUBED (test code=GLUBED) 136 mg/dL 74-106 Performed by certified leak operator paraffin plant at [facility] THROMBOPLASTIN TIME [id number] 03:25:00* Test Item Value Reference Range Comments THROMBOPLASTIN TIME PARTIAL (test code=PTT) 76.6 seconds 25.0-36.5 IS PATIENT ON ANTICOAGULANTS? YLIST ANTICOAGULANTS ARGOTROBANTHROMBOPLASTIN TIME [id number] 23:24:00* Test Item Value Reference Range Comments THROMBOPLASTIN TIME PARTIAL (test code=PTT) 74.4 seconds 25.0-36.5 IS PATIENT ON ANTICOAGULANTS? YLIST ANTICOAGULANTS ARGATROBANGLUBED 2019-06-21 20:45:00* Test Item Value Reference Range Comments GLUBED (test code=GLUBED) 96 mg/dL 74-106 Performed by certified leak operator paraffin plant at [facility] THROMBOPLASTIN TIME [id number] 19:38:00* Test Item Value Reference Range Comments THROMBOPLASTIN TIME PARTIAL (test code=PTT) 37.3 seconds 25.0-36.5 IS PATIENT ON ANTICOAGULANTS? YLIST ANTICOAGULANTS ARGATROBANGLUBED 2019-06-21 18:22:00* Test Item Value Reference Range Comments GLUBED (test code=GLUBED) 91 mg/dL 74-106 Performed by certified leak operator paraffin plant at [facility] [id number] 15:55:00* Test Item Value Reference Range Comments POTASSIUM (test code=K) 3.4 mmol/L 3.5-5.1 [id number] 12:56:00* Test Item Value Reference Range Comments GLUBED (test code=GLUBED) 159 mg/dL 74-106 Performed by certified leak operator paraffin plant at [facility] THROMBOPLASTIN TIME [id number] 08:23:00* Test Item Value Reference Range Comments THROMBOPLASTIN TIME PARTIAL (test code=PTT) 52.0 seconds 25.0-36.5 IS PATIENT ON ANTICOAGULANTS? YLIST ANTICOAGULANTS ARGOTRON DRIPCBC W/AUTO [id number] 07:36:00* Test Item Value Reference Range Comments WHITE BLOOD CELL (test code=WBC) 10.5 K/mm3 4.5-12.5 RED BLOOD CELL (test code=RBC) 3.05 mill/mm3 3.7-5.2 HEMOGLOBIN (test code=HGB) 8.4 gram/dL 11.5-15.5 HEMATOCRIT (test code=HCT) 25.7 % 36.0-46.0 MEAN CELL VOLUME (test code=MCV) 84.3 fL 80-98 MEAN CELL HGB (test code=MCH) 27.5 picogram 27.0-33.0 MEAN CELL HGB CONCETRATION (test code=MCHC) 32.7 gram/dL 33.0-36.0 RED CELL DISTRIBUTION WIDTH (test code=RDW) 14.3 % 11.6-16.2 RED CELL DISTRIBUTION WIDTH SD (test code=RDW-SD) 43.4 fL 37.0-51.0 PLATELET COUNT (test code=PLT) 67 K/mm3 150-450 MEAN PLATELET VOLUME (test code=MPV) 12.2 fL 6.7-11.0 NEUTROPHIL % (test code=NT%) 72.5 % 39.0-69.0 IMMATURE GRANULOCYTE % (test code=IG%) 0.4 % 0.0-5.0 LYMPHOCYTE % (test code=LY%) 17.3 % 25.0-55.0 MONOCYTE % (test code=MO%) 5.9 % 0.0-10.0 EOSINOPHIL % (test code=EO%) 3.5 % 0.0-5.0 BASOPHIL % (test code=BA%) 0.4 % 0.0-1.0 NUCLEATED RBC % (test code=NRBC%) 0.0 % 0-0 NEUTROPHIL # (test code=NT#) 7.57 K/mm3 1.8-7.7 IMMATURE GRANULOCYTE # (test code=IG#) 0.04 x10 3/uL 0-0.03 LYMPHOCYTE # (test code=LY#) 1.81 K/mm3 1.0-5.0 MONOCYTE # (test code=MO#) 0.62 K/mm3 0-0.8 EOSINOPHIL # (test code=EO#) 0.37 K/mm3 0.0-0.5 BASOPHIL # (test code=BA#) 0.04 K/mm3 0.0-0.2 NUCLEATED RBC # (test code=NRBC#) 0.00 K/mm3 0.0-0.1 MANUAL DIFF REQUIRED (test code=MDIFF) NO, ONLY SCAN NEEDED DIFFERENTIAL [id number] 07:36:00* Test Item Value Reference Range Comments STAIN ACCEPTABILITY (test code=STN ACCEPTABLE) STAIN ACCEPTABLE ANISOCYTOSIS (test code=ANISO) 1+ MICROCYTOSIS (test code=MICR) 1+ PLATELET ESTIMATE (test code=PLTEST) DECREASED PLATELET MORPHOLOGY (test code=PLTMORPH) NORMAL [id number] 05:48:00* Test Item Value Reference Range Comments GLUBED (test code=GLUBED) 121 mg/dL 74-106 Performed by certified leak operator paraffin plant at [facility] THROMBOPLASTIN TIME [id number] 03:14:00* Test Item Value Reference Range Comments THROMBOPLASTIN TIME PARTIAL (test code=PTT) 60.7 seconds 25.0-36.5 IS PATIENT ON ANTICOAGULANTS? YLIST ANTICOAGULANTS ARGOTROBANCBC W/AUTO DIFF 2019-06-21 03:06:00* Test Item Value Reference Range Comments WHITE BLOOD CELL (test code=WBC) 10.5 K/mm3 4.5-12.5 RED BLOOD CELL (test code=RBC) 3.05 mill/mm3 3.7-5.2 HEMOGLOBIN (test code=HGB) 8.4 gram/dL 11.5-15.5 HEMATOCRIT (test code=HCT) 25.7 % 36.0-46.0 MEAN CELL VOLUME (test code=MCV) 84.3 fL 80-98 MEAN CELL HGB (test code=MCH) 27.5 picogram 27.0-33.0 MEAN CELL HGB CONCETRATION (test code=MCHC) 32.7 gram/dL 33.0-36.0 RED CELL DISTRIBUTION WIDTH (test code=RDW) 14.3 % 11.6-16.2 RED CELL DISTRIBUTION WIDTH SD (test code=RDW-SD) 43.4 fL 37.0-51.0 PLATELET COUNT (test code=PLT) 67 K/mm3 150-450 MEAN PLATELET VOLUME (test code=MPV) 12.2 fL 6.7-11.0 NEUTROPHIL % (test code=NT%) 72.5 % 39.0-69.0 IMMATURE GRANULOCYTE % (test code=IG%) 0.4 % 0.0-5.0 LYMPHOCYTE % (test code=LY%) 17.3 % 25.0-55.0 MONOCYTE % (test code=MO%) 5.9 % 0.0-10.0 EOSINOPHIL % (test code=EO%) 3.5 % 0.0-5.0 BASOPHIL % (test code=BA%) 0.4 % 0.0-1.0 NUCLEATED RBC % (test code=NRBC%) 0.0 % 0-0 NEUTROPHIL # (test code=NT#) 7.57 K/mm3 1.8-7.7 IMMATURE GRANULOCYTE # (test code=IG#) 0.04 x10 3/uL 0-0.03 LYMPHOCYTE # (test code=LY#) 1.81 K/mm3 1.0-5.0 MONOCYTE # (test code=MO#) 0.62 K/mm3 0-0.8 EOSINOPHIL # (test code=EO#) 0.37 K/mm3 0.0-0.5 BASOPHIL # (test code=BA#) 0.04 K/mm3 0.0-0.2 NUCLEATED RBC # (test code=NRBC#) 0.00 K/mm3 0.0-0.1 MANUAL DIFF REQUIRED (test code=MDIFF) NO, ONLY SCAN NEEDED DIFFERENTIAL [id number] 03:06:00* Test Item Value Reference Range Comments STAIN ACCEPTABILITY (test code=STN ACCEPTABLE) CABOT RINGS (test code=CAB) MORPHOLOGY COMMENT (test code=MOC) PLATELET ESTIMATE (test code=PLTEST) PLATELET MORPHOLOGY (test code=PLTMORPH) CBC W/AUTO [id number] 03:06:00* Test Item Value Reference Range Comments WHITE BLOOD CELL (test code=WBC) 10.5 K/mm3 4.5-12.5 RED BLOOD CELL (test code=RBC) 3.05 mill/mm3 3.7-5.2 HEMOGLOBIN (test code=HGB) 8.4 gram/dL 11.5-15.5 HEMATOCRIT (test code=HCT) 25.7 % 36.0-46.0 MEAN CELL VOLUME (test code=MCV) 84.3 fL 80-98 MEAN CELL HGB (test code=MCH) 27.5 picogram 27.0-33.0 MEAN CELL HGB CONCETRATION (test code=MCHC) 32.7 gram/dL 33.0-36.0 RED CELL DISTRIBUTION WIDTH (test code=RDW) 14.3 % 11.6-16.2 RED CELL DISTRIBUTION WIDTH SD (test code=RDW-SD) 43.4 fL 37.0-51.0 PLATELET COUNT (test code=PLT) 67 K/mm3 150-450 MEAN PLATELET VOLUME (test code=MPV) 12.2 fL 6.7-11.0 NEUTROPHIL % (test code=NT%) 72.5 % 39.0-69.0 IMMATURE GRANULOCYTE % (test code=IG%) 0.4 % 0.0-5.0 LYMPHOCYTE % (test code=LY%) 17.3 % 25.0-55.0 MONOCYTE % (test code=MO%) 5.9 % 0.0-10.0 EOSINOPHIL % (test code=EO%) 3.5 % 0.0-5.0 BASOPHIL % (test code=BA%) 0.4 % 0.0-1.0 NUCLEATED RBC % (test code=NRBC%) 0.0 % 0-0 NEUTROPHIL # (test code=NT#) 7.57 K/mm3 1.8-7.7 IMMATURE GRANULOCYTE # (test code=IG#) 0.04 x10 3/uL 0-0.03 LYMPHOCYTE # (test code=LY#) 1.81 K/mm3 1.0-5.0 MONOCYTE # (test code=MO#) 0.62 K/mm3 0-0.8 EOSINOPHIL # (test code=EO#) 0.37 K/mm3 0.0-0.5 BASOPHIL # (test code=BA#) 0.04 K/mm3 0.0-0.2 NUCLEATED RBC # (test code=NRBC#) 0.00 K/mm3 0.0-0.1 MANUAL DIFF REQUIRED (test code=MDIFF) NO, ONLY SCAN NEEDED DIFFERENTIAL [id number] 03:06:00* Test Item Value Reference Range Comments STAIN ACCEPTABILITY (test code=STN ACCEPTABLE) CABOT RINGS (test code=CAB) MORPHOLOGY COMMENT (test code=MOC) PLATELET ESTIMATE (test code=PLTEST) PLATELET MORPHOLOGY (test code=PLTMORPH) CBC W/AUTO [id number] 03:06:00* Test Item Value Reference Range Comments WHITE BLOOD CELL (test code=WBC) 10.5 K/mm3 4.5-12.5 RED BLOOD CELL (test code=RBC) 3.05 mill/mm3 3.7-5.2 HEMOGLOBIN (test code=HGB) 8.4 gram/dL 11.5-15.5 HEMATOCRIT (test code=HCT) 25.7 % 36.0-46.0 MEAN CELL VOLUME (test code=MCV) 84.3 fL 80-98 MEAN CELL HGB (test code=MCH) 27.5 picogram 27.0-33.0 MEAN CELL HGB CONCETRATION (test code=MCHC) 32.7 gram/dL 33.0-36.0 RED CELL DISTRIBUTION WIDTH (test code=RDW) 14.3 % 11.6-16.2 RED CELL DISTRIBUTION WIDTH SD (test code=RDW-SD) 43.4 fL 37.0-51.0 PLATELET COUNT (test code=PLT) 67 K/mm3 150-450 MEAN PLATELET VOLUME (test code=MPV) 12.2 fL 6.7-11.0 NEUTROPHIL % (test code=NT%) 72.5 % 39.0-69.0 IMMATURE GRANULOCYTE % (test code=IG%) 0.4 % 0.0-5.0 LYMPHOCYTE % (test code=LY%) 17.3 % 25.0-55.0 MONOCYTE % (test code=MO%) 5.9 % 0.0-10.0 EOSINOPHIL % (test code=EO%) 3.5 % 0.0-5.0 BASOPHIL % (test code=BA%) 0.4 % 0.0-1.0 NUCLEATED RBC % (test code=NRBC%) 0.0 % 0-0 NEUTROPHIL # (test code=NT#) 7.57 K/mm3 1.8-7.7 IMMATURE GRANULOCYTE # (test code=IG#) 0.04 x10 3/uL 0-0.03 LYMPHOCYTE # (test code=LY#) 1.81 K/mm3 1.0-5.0 MONOCYTE # (test code=MO#) 0.62 K/mm3 0-0.8 EOSINOPHIL # (test code=EO#) 0.37 K/mm3 0.0-0.5 BASOPHIL # (test code=BA#) 0.04 K/mm3 0.0-0.2 NUCLEATED RBC # (test code=NRBC#) 0.00 K/mm3 0.0-0.1 MANUAL DIFF REQUIRED (test code=MDIFF) NO, ONLY SCAN NEEDED DIFFERENTIAL [id number] 03:06:00* Test Item Value Reference Range Comments STAIN ACCEPTABILITY (test code=STN ACCEPTABLE) MORPHOLOGY COMMENT (test code=MOC) PLATELET ESTIMATE (test code=PLTEST) PLATELET MORPHOLOGY (test code=PLTMORPH) CBC W/AUTO [id number] 03:06:00* Test Item Value Reference Range Comments WHITE BLOOD CELL (test code=WBC) 10.5 K/mm3 4.5-12.5 RED BLOOD CELL (test code=RBC) 3.05 mill/mm3 3.7-5.2 HEMOGLOBIN (test code=HGB) 8.4 gram/dL 11.5-15.5 HEMATOCRIT (test code=HCT) 25.7 % 36.0-46.0 MEAN CELL VOLUME (test code=MCV) 84.3 fL 80-98 MEAN CELL HGB (test code=MCH) 27.5 picogram 27.0-33.0 MEAN CELL HGB CONCETRATION (test code=MCHC) 32.7 gram/dL 33.0-36.0 RED CELL DISTRIBUTION WIDTH (test code=RDW) 14.3 % 11.6-16.2 RED CELL DISTRIBUTION WIDTH SD (test code=RDW-SD) 43.4 fL 37.0-51.0 PLATELET COUNT (test code=PLT) 67 K/mm3 150-450 MEAN PLATELET VOLUME (test code=MPV) 12.2 fL 6.7-11.0 NEUTROPHIL % (test code=NT%) 72.5 % 39.0-69.0 IMMATURE GRANULOCYTE % (test code=IG%) 0.4 % 0.0-5.0 LYMPHOCYTE % (test code=LY%) 17.3 % 25.0-55.0 MONOCYTE % (test code=MO%) 5.9 % 0.0-10.0 EOSINOPHIL % (test code=EO%) 3.5 % 0.0-5.0 BASOPHIL % (test code=BA%) 0.4 % 0.0-1.0 NUCLEATED RBC % (test code=NRBC%) 0.0 % 0-0 NEUTROPHIL # (test code=NT#) 7.57 K/mm3 1.8-7.7 IMMATURE GRANULOCYTE # (test code=IG#) 0.04 x10 3/uL 0-0.03 LYMPHOCYTE # (test code=LY#) 1.81 K/mm3 1.0-5.0 MONOCYTE # (test code=MO#) 0.62 K/mm3 0-0.8 EOSINOPHIL # (test code=EO#) 0.37 K/mm3 0.0-0.5 BASOPHIL # (test code=BA#) 0.04 K/mm3 0.0-0.2 NUCLEATED RBC # (test code=NRBC#) 0.00 K/mm3 0.0-0.1 MANUAL DIFF REQUIRED (test code=MDIFF) NO, ONLY SCAN NEEDED DIFFERENTIAL [id number] 03:06:00* Test Item Value Reference Range Comments STAIN ACCEPTABILITY (test code=STN ACCEPTABLE) CABOT RINGS (test code=CAB) MORPHOLOGY COMMENT (test code=MOC) PLATELET ESTIMATE (test code=PLTEST) PLATELET MORPHOLOGY (test code=PLTMORPH) PLATELET [id number] 21:38:00* Test Item Value Reference Range Comments PLATELET COUNT (test code=PLT) 59 K/mm3 150-450 RESULT VERIFIED BY REPEAT ANALYSIS CBC W/AUTO [id number] 21:03:00* Test Item Value Reference Range Comments WHITE BLOOD CELL (test code=WBC) 10.5 K/mm3 4.5-12.5 RED BLOOD CELL (test code=RBC) 3.30 mill/mm3 3.7-5.2 HEMOGLOBIN (test code=HGB) 9.1 gram/dL 11.5-15.5 HEMATOCRIT (test code=HCT) 27.8 % 36.0-46.0 MEAN CELL VOLUME (test code=MCV) 84.2 fL 80-98 MEAN CELL HGB (test code=MCH) 27.6 picogram 27.0-33.0 MEAN CELL HGB CONCETRATION (test code=MCHC) 32.7 gram/dL 33.0-36.0 RED CELL DISTRIBUTION WIDTH (test code=RDW) 14.1 % 11.6-16.2 RED CELL DISTRIBUTION WIDTH SD (test code=RDW-SD) 43.3 fL 37.0-51.0 PLATELET COUNT (test code=PLT) 61 K/mm3 150-450 MEAN PLATELET VOLUME (test code=MPV) 13.0 fL 6.7-11.0 NEUTROPHIL % (test code=NT%) 73.2 % 39.0-69.0 IMMATURE GRANULOCYTE % (test code=IG%) 0.3 % 0.0-5.0 LYMPHOCYTE % (test code=LY%) 18.7 % 25.0-55.0 MONOCYTE % (test code=MO%) 5.6 % 0.0-10.0 EOSINOPHIL % (test code=EO%) 1.8 % 0.0-5.0 BASOPHIL % (test code=BA%) 0.4 % 0.0-1.0 NUCLEATED RBC % (test code=NRBC%) 0.0 % 0-0 NEUTROPHIL # (test code=NT#) 7.69 K/mm3 1.8-7.7 IMMATURE GRANULOCYTE # (test code=IG#) 0.03 x10 3/uL 0-0.03 LYMPHOCYTE # (test code=LY#) 1.96 K/mm3 1.0-5.0 MONOCYTE # (test code=MO#) 0.59 K/mm3 0-0.8 EOSINOPHIL # (test code=EO#) 0.19 K/mm3 0.0-0.5 BASOPHIL # (test code=BA#) 0.04 K/mm3 0.0-0.2 NUCLEATED RBC # (test code=NRBC#) 0.00 K/mm3 0.0-0.1 MANUAL DIFF REQUIRED (test code=MDIFF) NO, ONLY SCAN NEEDED SPECIMEN COMMENTS: Call back with result at [phone] SCAN 2019-06-20 21:03:00* Test Item Value Reference Range Comments STAIN ACCEPTABILITY (test code=STN ACCEPTABLE) STAIN ACCEPTABLE PLATELET ESTIMATE (test code=PLTEST) SLIGHTLY DECREASED PLATELET MORPHOLOGY (test code=PLTMORPH) NORMAL SPECIMEN COMMENTS: Call back with result at [phone] TIME 2019-06-20 20:42:00* Test Item Value Reference Range Comments PROTHROMBIN TIME PATIENT (test code=PTP) 13.2 seconds 9.0-14.0 INTERNATIONAL NORMAL RATIO (test code=INR) 1.1 0.8-1.2 The therapeutic range for oral anticoagulant therapy formost indications is an international normalized ratio (INR)of between 2.0 and 3.0. The recommended therapeutic INRrange for various clinical situations is listed below: Clinical Situation INR range Pulmonary e mbolism treatment (2.0-3.0)Venous thrombosis treatmentVenous thrombosis prophylaxis (high risk surgery)Prevention of systemic embolism from: Acute myocardial infarction Valvular heart disease Atrial fibrillation Mechanical prosthetic heart valves (2.5-3.5) IS PATIENT ON ANTICOAGULANTS? [facility] ANTICOAGULANTS LOVENOXFIBRINOGEN 2019-06-20 20:42:00* Test Item Value Reference Range Comments FIBRINOGEN (test code=FIB) 434 mg/dL 200-400 IS PATIENT ON ANTICOAGULANTS? [facility] ANTICOAGULANTS [id number] 20:42:00* Test Item Value Reference Range Comments D-DIMER (test code=DDIMER) 3565.00 ng/mLFEU 0-500 Results called to [id number] by [employer].SPR 06/20/19 1941Critical results verified and read back by Nurse? YClinical Cut-off value for D-Dimer is 500 ng/mL FEU. Comment: The [employer] D- Dimer assay is intended for use asan aid in the diagnosis of venous thromboembolism (VTE)[deep vein thrombosis (DVT) or pulmonary embolism (PE)].The measurement of D-Dimer should not be used as an aid inthe diagnosis of VTE, in patient with: -Therapeutic dose anticoagulant therapy for >24 hours - Fibrinolytic therapy within previous 7 days -Trauma or surgery within previous 4 weeks -Disseminated malignancies -Aortic aneurysm -Sepsis, severe infections, pneumonia, severe skin infections -Liver cirrhosis - IS PATIENT ON ANTICOAGULANTS? [facility] ANTICOAGULANTS LOVENOXHEPARIN INDUCED [id number] 20:42:00* Test Item Value Reference Range Comments HEPARIN INDUCED THROMBOCYTOPEN (test code=HIT) POSITIVE NEGATIVE Results called to [id number] by [employer].LL 06/20/195Critical results verified and read back by Nurse? Repeat value: POSITIVE, 1.0 HemosIL HIT-Ab(PF4-H) results equal to or higher than 1.0U/mL may indicate the presence of HIT antibodies. The assayresults should be used with other information, including theclinical context, in forming a diagnosis. IS PATIENT ON ANTICOAGULANTS? [facility] ANTICOAGULANTS [id number] 20:04:00* Test Item Value Reference Range Comments GLUBED (test code=GLUBED) 140 mg/dL 74-106 Performed by certified leak operator paraffin plant at [facility] LACTIC DEHYDROGENASE(LDH)2019-06-20 20:03:00* Test Item Value Reference Range Comments LACTIC DEHYDROGENASE(LDH) (test code=LDH) 317 IUnit/L 84-246 FE W/TOTAL IRON BINDING CAP.2019-06-20 20:03:00* Test Item Value Reference Range Comments SERUM IRON (test code=IRON) 52 ug/dL 50-175 TOTAL IRON BINDING CAPACITY (test code=TIBC) 361 mcg/dL 250-450 IRON SATURATION (test code=FESAT) 14.40 % 13-45 VITAMIN [id number] 20:03:00* Test Item Value Reference Range Comments VITAMIN B12 (test code=VITB12) 504 pg/mL 193-986 FOLIC [id number] 20:03:00* Test Item Value Reference Range Comments FOLIC ACID (test code=FOL) 14.5 ng/mL 3.10-17.50 [id number] 20:03:00* Test Item Value Reference Range Comments FERRITIN (test code=KATHLEEN) 282 ng/mL 8-388 CBC W/AUTO [id number] 19:43:00* Test Item Value Reference Range Comments WHITE BLOOD CELL (test code=WBC) 10.5 K/mm3 4.5-12.5 RED BLOOD CELL (test code=RBC) 3.30 mill/mm3 3.7-5.2 HEMOGLOBIN (test code=HGB) 9.1 gram/dL 11.5-15.5 HEMATOCRIT (test code=HCT) 27.8 % 36.0-46.0 MEAN CELL VOLUME (test code=MCV) 84.2 fL 80-98 MEAN CELL HGB (test code=MCH) 27.6 picogram 27.0-33.0 MEAN CELL HGB CONCETRATION (test code=MCHC) 32.7 gram/dL 33.0-36.0 RED CELL DISTRIBUTION WIDTH (test code=RDW) 14.1 % 11.6-16.2 RED CELL DISTRIBUTION WIDTH SD (test code=RDW-SD) 43.3 fL 37.0-51.0 PLATELET COUNT (test code=PLT) 61 K/mm3 150-450 MEAN PLATELET VOLUME (test code=MPV) 13.0 fL 6.7-11.0 NEUTROPHIL % (test code=NT%) 73.2 % 39.0-69.0 IMMATURE GRANULOCYTE % (test code=IG%) 0.3 % 0.0-5.0 LYMPHOCYTE % (test code=LY%) 18.7 % 25.0-55.0 MONOCYTE % (test code=MO%) 5.6 % 0.0-10.0 EOSINOPHIL % (test code=EO%) 1.8 % 0.0-5.0 BASOPHIL % (test code=BA%) 0.4 % 0.0-1.0 NUCLEATED RBC % (test code=NRBC%) 0.0 % 0-0 NEUTROPHIL # (test code=NT#) 7.69 K/mm3 1.8-7.7 IMMATURE GRANULOCYTE # (test code=IG#) 0.03 x10 3/uL 0-0.03 LYMPHOCYTE # (test code=LY#) 1.96 K/mm3 1.0-5.0 MONOCYTE # (test code=MO#) 0.59 K/mm3 0-0.8 EOSINOPHIL # (test code=EO#) 0.19 K/mm3 0.0-0.5 BASOPHIL # (test code=BA#) 0.04 K/mm3 0.0-0.2 NUCLEATED RBC # (test code=NRBC#) 0.00 K/mm3 0.0-0.1 MANUAL DIFF REQUIRED (test code=MDIFF) NO, ONLY SCAN NEEDED SPECIMEN COMMENTS: Call back with result at [phone] SCAN 2019-06-20 19:43:00* Test Item Value Reference Range Comments STAIN ACCEPTABILITY (test code=STN ACCEPTABLE) CABOT RINGS (test code=CAB) MORPHOLOGY COMMENT (test code=MOC) PLATELET ESTIMATE (test code=PLTEST) PLATELET MORPHOLOGY (test code=PLTMORPH) SPECIMEN COMMENTS: Call back with result at [phone] W/AUTO DIFF 2019-06-20 19:43:00* Test Item Value Reference Range Comments WHITE BLOOD CELL (test code=WBC) 10.5 K/mm3 4.5-12.5 RED BLOOD CELL (test code=RBC) 3.30 mill/mm3 3.7-5.2 HEMOGLOBIN (test code=HGB) 9.1 gram/dL 11.5-15.5 HEMATOCRIT (test code=HCT) 27.8 % 36.0-46.0 MEAN CELL VOLUME (test code=MCV) 84.2 fL 80-98 MEAN CELL HGB (test code=MCH) 27.6 picogram 27.0-33.0 MEAN CELL HGB CONCETRATION (test code=MCHC) 32.7 gram/dL 33.0-36.0 RED CELL DISTRIBUTION WIDTH (test code=RDW) 14.1 % 11.6-16.2 RED CELL DISTRIBUTION WIDTH SD (test code=RDW-SD) 43.3 fL 37.0-51.0 PLATELET COUNT (test code=PLT) 61 K/mm3 150-450 MEAN PLATELET VOLUME (test code=MPV) 13.0 fL 6.7-11.0 NEUTROPHIL % (test code=NT%) 73.2 % 39.0-69.0 IMMATURE GRANULOCYTE % (test code=IG%) 0.3 % 0.0-5.0 LYMPHOCYTE % (test code=LY%) 18.7 % 25.0-55.0 MONOCYTE % (test code=MO%) 5.6 % 0.0-10.0 EOSINOPHIL % (test code=EO%) 1.8 % 0.0-5.0 BASOPHIL % (test code=BA%) 0.4 % 0.0-1.0 NUCLEATED RBC % (test code=NRBC%) 0.0 % 0-0 NEUTROPHIL # (test code=NT#) 7.69 K/mm3 1.8-7.7 IMMATURE GRANULOCYTE # (test code=IG#) 0.03 x10 3/uL 0-0.03 LYMPHOCYTE # (test code=LY#) 1.96 K/mm3 1.0-5.0 MONOCYTE # (test code=MO#) 0.59 K/mm3 0-0.8 EOSINOPHIL # (test code=EO#) 0.19 K/mm3 0.0-0.5 BASOPHIL # (test code=BA#) 0.04 K/mm3 0.0-0.2 NUCLEATED RBC # (test code=NRBC#) 0.00 K/mm3 0.0-0.1 MANUAL DIFF REQUIRED (test code=MDIFF) NO, ONLY SCAN NEEDED SPECIMEN COMMENTS: Call back with result at [phone] SCAN 2019-06-20 19:43:00* Test Item Value Reference Range Comments STAIN ACCEPTABILITY (test code=STN ACCEPTABLE) CABOT RINGS (test code=CAB) MORPHOLOGY COMMENT (test code=MOC) PLATELET ESTIMATE (test code=PLTEST) PLATELET MORPHOLOGY (test code=PLTMORPH) SPECIMEN COMMENTS: Call back with result at [phone] W/AUTO DIFF 2019-06-20 19:43:00* Test Item Value Reference Range Comments WHITE BLOOD CELL (test code=WBC) 10.5 K/mm3 4.5-12.5 RED BLOOD CELL (test code=RBC) 3.30 mill/mm3 3.7-5.2 HEMOGLOBIN (test code=HGB) 9.1 gram/dL 11.5-15.5 HEMATOCRIT (test code=HCT) 27.8 % 36.0-46.0 MEAN CELL VOLUME (test code=MCV) 84.2 fL 80-98 MEAN CELL HGB (test code=MCH) 27.6 picogram 27.0-33.0 MEAN CELL HGB CONCETRATION (test code=MCHC) 32.7 gram/dL 33.0-36.0 RED CELL DISTRIBUTION WIDTH (test code=RDW) 14.1 % 11.6-16.2 RED CELL DISTRIBUTION WIDTH SD (test code=RDW-SD) 43.3 fL 37.0-51.0 PLATELET COUNT (test code=PLT) 61 K/mm3 150-450 MEAN PLATELET VOLUME (test code=MPV) 13.0 fL 6.7-11.0 NEUTROPHIL % (test code=NT%) 73.2 % 39.0-69.0 IMMATURE GRANULOCYTE % (test code=IG%) 0.3 % 0.0-5.0 LYMPHOCYTE % (test code=LY%) 18.7 % 25.0-55.0 MONOCYTE % (test code=MO%) 5.6 % 0.0-10.0 EOSINOPHIL % (test code=EO%) 1.8 % 0.0-5.0 BASOPHIL % (test code=BA%) 0.4 % 0.0-1.0 NUCLEATED RBC % (test code=NRBC%) 0.0 % 0-0 NEUTROPHIL # (test code=NT#) 7.69 K/mm3 1.8-7.7 IMMATURE GRANULOCYTE # (test code=IG#) 0.03 x10 3/uL 0-0.03 LYMPHOCYTE # (test code=LY#) 1.96 K/mm3 1.0-5.0 MONOCYTE # (test code=MO#) 0.59 K/mm3 0-0.8 EOSINOPHIL # (test code=EO#) 0.19 K/mm3 0.0-0.5 BASOPHIL # (test code=BA#) 0.04 K/mm3 0.0-0.2 NUCLEATED RBC # (test code=NRBC#) 0.00 K/mm3 0.0-0.1 MANUAL DIFF REQUIRED (test code=MDIFF) NO, ONLY SCAN NEEDED SPECIMEN COMMENTS: Call back with result at [phone] SCAN 2019-06-20 19:43:00* Test Item Value Reference Range Comments STAIN ACCEPTABILITY (test code=STN ACCEPTABLE) MORPHOLOGY COMMENT (test code=MOC) PLATELET ESTIMATE (test code=PLTEST) PLATELET MORPHOLOGY (test code=PLTMORPH) SPECIMEN COMMENTS: Call back with result at [phone] W/AUTO DIFF 2019-06-20 19:42:00* Test Item Value Reference Range Comments WHITE BLOOD CELL (test code=WBC) 10.5 K/mm3 4.5-12.5 RED BLOOD CELL (test code=RBC) 3.30 mill/mm3 3.7-5.2 HEMOGLOBIN (test code=HGB) 9.1 gram/dL 11.5-15.5 HEMATOCRIT (test code=HCT) 27.8 % 36.0-46.0 MEAN CELL VOLUME (test code=MCV) 84.2 fL 80-98 MEAN CELL HGB (test code=MCH) 27.6 picogram 27.0-33.0 MEAN CELL HGB CONCETRATION (test code=MCHC) 32.7 gram/dL 33.0-36.0 RED CELL DISTRIBUTION WIDTH (test code=RDW) 14.1 % 11.6-16.2 RED CELL DISTRIBUTION WIDTH SD (test code=RDW-SD) 43.3 fL 37.0-51.0 PLATELET COUNT (test code=PLT) 61 K/mm3 150-450 MEAN PLATELET VOLUME (test code=MPV) 13.0 fL 6.7-11.0 NEUTROPHIL % (test code=NT%) 73.2 % 39.0-69.0 IMMATURE GRANULOCYTE % (test code=IG%) 0.3 % 0.0-5.0 LYMPHOCYTE % (test code=LY%) 18.7 % 25.0-55.0 MONOCYTE % (test code=MO%) 5.6 % 0.0-10.0 EOSINOPHIL % (test code=EO%) 1.8 % 0.0-5.0 BASOPHIL % (test code=BA%) 0.4 % 0.0-1.0 NUCLEATED RBC % (test code=NRBC%) 0.0 % 0-0 NEUTROPHIL # (test code=NT#) 7.69 K/mm3 1.8-7.7 IMMATURE GRANULOCYTE # (test code=IG#) 0.03 x10 3/uL 0-0.03 LYMPHOCYTE # (test code=LY#) 1.96 K/mm3 1.0-5.0 MONOCYTE # (test code=MO#) 0.59 K/mm3 0-0.8 EOSINOPHIL # (test code=EO#) 0.19 K/mm3 0.0-0.5 BASOPHIL # (test code=BA#) 0.04 K/mm3 0.0-0.2 NUCLEATED RBC # (test code=NRBC#) 0.00 K/mm3 0.0-0.1 MANUAL DIFF REQUIRED (test code=MDIFF) NO, ONLY SCAN NEEDED SPECIMEN COMMENTS: Call back with result at [phone] TIME 2019-06-20 19:41:00* Test Item Value Reference Range Comments PROTHROMBIN TIME PATIENT (test code=PTP) 13.2 seconds 9.0-14.0 INTERNATIONAL NORMAL RATIO (test code=INR) 1.1 0.8-1.2 The therapeutic range for oral anticoagulant therapy formost indications is an international normalized ratio (INR)of between 2.0 and 3.0. The recommended therapeutic INRrange for various clinical situations is listed below: Clinical Situation INR range Pulmonary e mbolism treatment (2.0-3.0)Venous thrombosis treatmentVenous thrombosis prophylaxis (high risk surgery)Prevention of systemic embolism from: Acute myocardial infarction Valvular heart disease Atrial fibrillation Mechanical prosthetic heart valves (2.5-3.5) IS PATIENT ON ANTICOAGULANTS? [facility] ANTICOAGULANTS LOVENOXFIBRINOGEN 2019-06-20 19:41:00* Test Item Value Reference Range Comments FIBRINOGEN (test code=FIB) 434 mg/dL 200-400 IS PATIENT ON ANTICOAGULANTS? [facility] [id number] 19:41:00* Test Item Value Reference Range Comments D-DIMER (test code=DDIMER) 3565.00 ng/mLFEU 0-500 Results called to [id number] by ZARASPR 06/20/19 1941Critical results verified and read back by Nurse? YClinical Cut-off value for D-Dimer is 500 ng/mL FEU. Comment: The [employer] D- Dimer assay is intended for use asan aid in the diagnosis of venous thromboembolism (VTE)[deep vein thrombosis (DVT) or pulmonary embolism (PE)].The measurement of D-Dimer should not be used as an aid inthe diagnosis of VTE, in patient with: -Therapeutic dose anticoagulant therapy for >24 hours - Fibrinolytic therapy within previous 7 days -Trauma or surgery within previous 4 weeks -Disseminated malignancies -Aortic aneurysm -Sepsis, severe infections, pneumonia, severe skin infections -Liver cirrhosis - IS PATIENT ON ANTICOAGULANTS? [facility] ANTICOAGULANTS LOVENOXHEPARIN INDUCED [id number] 19:41:00* Test Item Value Reference Range Comments HEPARIN INDUCED THROMBOCYTOPEN (test code=HIT) NEGATIVE IS PATIENT ON ANTICOAGULANTS? [facility] ANTICOAGULANTS LOVENOXRETICULOCYTE COUNT 2019-06-20 19:11:00* Test Item Value Reference Range Comments RETICULOCYTE COUNT (test code=RETICT) 3.2 % 0.5-2.0 RETIC COUNT ABSOLUTE (test code=RET#) 0.101 mill/mm3 0.016-0.095 IMMATURE RETICULOCYTE FRACTION (test code=IRF) 23.4 % 3.0-15.9 Values above normal range indicate an increase in RBCcellular response from bone marrow. RETICULOCYTE HGB EQUIVALENT (test code=RETHE) 30.4 pg 28.2-35.7 RET-He is a direct estimate of recent functionalavailability of iron in the cell, therefore, decreasedRET-He is indicative of iron deficiency. [id number] 19:11:00* Test Item Value Reference Range Comments HAPTOGLOBIN (test code=HAPT) mg/dL [id number] 17:31:00* Test Item Value Reference Range Comments GLUBED (test code=GLUBED) 181 mg/dL 74-106 Performed by certified leak operator paraffin plant at [facility] CBC W/AUTO [id number] 16:38:00* Test Item Value Reference Range Comments WHITE BLOOD CELL (test code=WBC) 11.7 K/mm3 4.5-12.5 RED BLOOD CELL (test code=RBC) 3.00 mill/mm3 3.7-5.2 HEMOGLOBIN (test code=HGB) 8.3 gram/dL 11.5-15.5 HEMATOCRIT (test code=HCT) 25.2 % 36.0-46.0 MEAN CELL VOLUME (test code=MCV) 84.0 fL 80-98 MEAN CELL HGB (test code=MCH) 27.7 picogram 27.0-33.0 MEAN CELL HGB CONCETRATION (test code=MCHC) 32.9 gram/dL 33.0-36.0 RED CELL DISTRIBUTION WIDTH (test code=RDW) 14.0 % 11.6-16.2 RED CELL DISTRIBUTION WIDTH SD (test code=RDW-SD) 42.8 fL 37.0-51.0 PLATELET COUNT (test code=PLT) 55 K/mm3 150-450 RESULT VERIFIED BY REPEAT ANALYSIS MEAN PLATELET VOLUME (test code=MPV) 12.1 fL 6.7-11.0 NEUTROPHIL % (test code=NT%) 74.9 % 39.0-69.0 IMMATURE GRANULOCYTE % (test code=IG%) 0.7 % 0.0-5.0 LYMPHOCYTE % (test code=LY%) 16.8 % 25.0-55.0 MONOCYTE % (test code=MO%) 5.8 % 0.0-10.0 EOSINOPHIL % (test code=EO%) 1.5 % 0.0-5.0 BASOPHIL % (test code=BA%) 0.3 % 0.0-1.0 NUCLEATED RBC % (test code=NRBC%) 0.0 % 0-0 NEUTROPHIL # (test code=NT#) 8.74 K/mm3 1.8-7.7 IMMATURE GRANULOCYTE # (test code=IG#) 0.08 x10 3/uL 0-0.03 LYMPHOCYTE # (test code=LY#) 1.96 K/mm3 1.0-5.0 MONOCYTE # (test code=MO#) 0.68 K/mm3 0-0.8 EOSINOPHIL # (test code=EO#) 0.17 K/mm3 0.0-0.5 BASOPHIL # (test code=BA#) 0.04 K/mm3 0.0-0.2 NUCLEATED RBC # (test code=NRBC#) 0.00 K/mm3 0.0-0.1 MANUAL DIFF REQUIRED (test code=MDIFF) NO, ONLY SCAN NEEDED 06/20/19 1531DIFFERENTIAL [id number] 16:38:00* Test Item Value Reference Range Comments STAIN ACCEPTABILITY (test code=STN ACCEPTABLE) STAIN ACCEPTABLE HYPOCHROMIA (test code=HYPO) 1+ MORPHOLOGY COMMENT (test code=MOC) NORMAL PLATELET ESTIMATE (test code=PLTEST) DECREASED PLATELET MORPHOLOGY (test code=PLTMORPH) NORMAL 06/20/19 1531CBC W/AUTO [id number] 15:49:00* Test Item Value Reference Range Comments WHITE BLOOD CELL (test code=WBC) 11.7 K/mm3 4.5-12.5 RED BLOOD CELL (test code=RBC) 3.00 mill/mm3 3.7-5.2 HEMOGLOBIN (test code=HGB) 8.3 gram/dL 11.5-15.5 HEMATOCRIT (test code=HCT) 25.2 % 36.0-46.0 MEAN CELL VOLUME (test code=MCV) 84.0 fL 80-98 MEAN CELL HGB (test code=MCH) 27.7 picogram 27.0-33.0 MEAN CELL HGB CONCETRATION (test code=MCHC) 32.9 gram/dL 33.0-36.0 RED CELL DISTRIBUTION WIDTH (test code=RDW) 14.0 % 11.6-16.2 RED CELL DISTRIBUTION WIDTH SD (test code=RDW-SD) 42.8 fL 37.0-51.0 PLATELET COUNT (test code=PLT) 55 K/mm3 150-450 RESULT VERIFIED BY REPEAT ANALYSIS MEAN PLATELET VOLUME (test code=MPV) 12.1 fL 6.7-11.0 NEUTROPHIL % (test code=NT%) 74.9 % 39.0-69.0 IMMATURE GRANULOCYTE % (test code=IG%) 0.7 % 0.0-5.0 LYMPHOCYTE % (test code=LY%) 16.8 % 25.0-55.0 MONOCYTE % (test code=MO%) 5.8 % 0.0-10.0 EOSINOPHIL % (test code=EO%) 1.5 % 0.0-5.0 BASOPHIL % (test code=BA%) 0.3 % 0.0-1.0 NUCLEATED RBC % (test code=NRBC%) 0.0 % 0-0 NEUTROPHIL # (test code=NT#) 8.74 K/mm3 1.8-7.7 IMMATURE GRANULOCYTE # (test code=IG#) 0.08 x10 3/uL 0-0.03 LYMPHOCYTE # (test code=LY#) 1.96 K/mm3 1.0-5.0 MONOCYTE # (test code=MO#) 0.68 K/mm3 0-0.8 EOSINOPHIL # (test code=EO#) 0.17 K/mm3 0.0-0.5 BASOPHIL # (test code=BA#) 0.04 K/mm3 0.0-0.2 NUCLEATED RBC # (test code=NRBC#) 0.00 K/mm3 0.0-0.1 MANUAL DIFF REQUIRED (test code=MDIFF) NO, ONLY SCAN NEEDED 06/20/19 1531DIFFERENTIAL [id number] 15:49:00* Test Item Value Reference Range Comments STAIN ACCEPTABILITY (test code=STN ACCEPTABLE) CABOT RINGS (test code=CAB) MORPHOLOGY COMMENT (test code=MOC) PLATELET ESTIMATE (test code=PLTEST) PLATELET MORPHOLOGY (test code=PLTMORPH) 06/20/19 1531CBC W/AUTO [id number] 15:49:00* Test Item Value Reference Range Comments WHITE BLOOD CELL (test code=WBC) 11.7 K/mm3 4.5-12.5 RED BLOOD CELL (test code=RBC) 3.00 mill/mm3 3.7-5.2 HEMOGLOBIN (test code=HGB) 8.3 gram/dL 11.5-15.5 HEMATOCRIT (test code=HCT) 25.2 % 36.0-46.0 MEAN CELL VOLUME (test code=MCV) 84.0 fL 80-98 MEAN CELL HGB (test code=MCH) 27.7 picogram 27.0-33.0 MEAN CELL HGB CONCETRATION (test code=MCHC) 32.9 gram/dL 33.0-36.0 RED CELL DISTRIBUTION WIDTH (test code=RDW) 14.0 % 11.6-16.2 RED CELL DISTRIBUTION WIDTH SD (test code=RDW-SD) 42.8 fL 37.0-51.0 PLATELET COUNT (test code=PLT) 55 K/mm3 150-450 RESULT VERIFIED BY REPEAT ANALYSIS MEAN PLATELET VOLUME (test code=MPV) 12.1 fL 6.7-11.0 NEUTROPHIL % (test code=NT%) 74.9 % 39.0-69.0 IMMATURE GRANULOCYTE % (test code=IG%) 0.7 % 0.0-5.0 LYMPHOCYTE % (test code=LY%) 16.8 % 25.0-55.0 MONOCYTE % (test code=MO%) 5.8 % 0.0-10.0 EOSINOPHIL % (test code=EO%) 1.5 % 0.0-5.0 BASOPHIL % (test code=BA%) 0.3 % 0.0-1.0 NUCLEATED RBC % (test code=NRBC%) 0.0 % 0-0 NEUTROPHIL # (test code=NT#) 8.74 K/mm3 1.8-7.7 IMMATURE GRANULOCYTE # (test code=IG#) 0.08 x10 3/uL 0-0.03 LYMPHOCYTE # (test code=LY#) 1.96 K/mm3 1.0-5.0 MONOCYTE # (test code=MO#) 0.68 K/mm3 0-0.8 EOSINOPHIL # (test code=EO#) 0.17 K/mm3 0.0-0.5 BASOPHIL # (test code=BA#) 0.04 K/mm3 0.0-0.2 NUCLEATED RBC # (test code=NRBC#) 0.00 K/mm3 0.0-0.1 MANUAL DIFF REQUIRED (test code=MDIFF) NO, ONLY SCAN NEEDED 06/20/19 1531DIFFERENTIAL [id number] 15:49:00* Test Item Value Reference Range Comments STAIN ACCEPTABILITY (test code=STN ACCEPTABLE) CABOT RINGS (test code=CAB) MORPHOLOGY COMMENT (test code=MOC) PLATELET ESTIMATE (test code=PLTEST) PLATELET MORPHOLOGY (test code=PLTMORPH) 06/20/19 1531CBC W/AUTO [id number] 15:49:00* Test Item Value Reference Range Comments WHITE BLOOD CELL (test code=WBC) 11.7 K/mm3 4.5-12.5 RED BLOOD CELL (test code=RBC) 3.00 mill/mm3 3.7-5.2 HEMOGLOBIN (test code=HGB) 8.3 gram/dL 11.5-15.5 HEMATOCRIT (test code=HCT) 25.2 % 36.0-46.0 MEAN CELL VOLUME (test code=MCV) 84.0 fL 80-98 MEAN CELL HGB (test code=MCH) 27.7 picogram 27.0-33.0 MEAN CELL HGB CONCETRATION (test code=MCHC) 32.9 gram/dL 33.0-36.0 RED CELL DISTRIBUTION WIDTH (test code=RDW) 14.0 % 11.6-16.2 RED CELL DISTRIBUTION WIDTH SD (test code=RDW-SD) 42.8 fL 37.0-51.0 PLATELET COUNT (test code=PLT) 55 K/mm3 150-450 RESULT VERIFIED BY REPEAT ANALYSIS MEAN PLATELET VOLUME (test code=MPV) 12.1 fL 6.7-11.0 NEUTROPHIL % (test code=NT%) 74.9 % 39.0-69.0 IMMATURE GRANULOCYTE % (test code=IG%) 0.7 % 0.0-5.0 LYMPHOCYTE % (test code=LY%) 16.8 % 25.0-55.0 MONOCYTE % (test code=MO%) 5.8 % 0.0-10.0 EOSINOPHIL % (test code=EO%) 1.5 % 0.0-5.0 BASOPHIL % (test code=BA%) 0.3 % 0.0-1.0 NUCLEATED RBC % (test code=NRBC%) 0.0 % 0-0 NEUTROPHIL # (test code=NT#) 8.74 K/mm3 1.8-7.7 IMMATURE GRANULOCYTE # (test code=IG#) 0.08 x10 3/uL 0-0.03 LYMPHOCYTE # (test code=LY#) 1.96 K/mm3 1.0-5.0 MONOCYTE # (test code=MO#) 0.68 K/mm3 0-0.8 EOSINOPHIL # (test code=EO#) 0.17 K/mm3 0.0-0.5 BASOPHIL # (test code=BA#) 0.04 K/mm3 0.0-0.2 NUCLEATED RBC # (test code=NRBC#) 0.00 K/mm3 0.0-0.1 MANUAL DIFF REQUIRED (test code=MDIFF) NO, ONLY SCAN NEEDED 06/20/19 1531DIFFERENTIAL [id number] 15:49:00* Test Item Value Reference Range Comments STAIN ACCEPTABILITY (test code=STN ACCEPTABLE) MORPHOLOGY COMMENT (test code=MOC) PLATELET ESTIMATE (test code=PLTEST) PLATELET MORPHOLOGY (test code=PLTMORPH) 06/20/19 1531CBC W/AUTO [id number] 15:49:00* Test Item Value Reference Range Comments WHITE BLOOD CELL (test code=WBC) 11.7 K/mm3 4.5-12.5 RED BLOOD CELL (test code=RBC) 3.00 mill/mm3 3.7-5.2 HEMOGLOBIN (test code=HGB) 8.3 gram/dL 11.5-15.5 HEMATOCRIT (test code=HCT) 25.2 % 36.0-46.0 MEAN CELL VOLUME (test code=MCV) 84.0 fL 80-98 MEAN CELL HGB (test code=MCH) 27.7 picogram 27.0-33.0 MEAN CELL HGB CONCETRATION (test code=MCHC) 32.9 gram/dL 33.0-36.0 RED CELL DISTRIBUTION WIDTH (test code=RDW) 14.0 % 11.6-16.2 RED CELL DISTRIBUTION WIDTH SD (test code=RDW-SD) 42.8 fL 37.0-51.0 PLATELET COUNT (test code=PLT) 55 K/mm3 150-450 RESULT VERIFIED BY REPEAT ANALYSIS MEAN PLATELET VOLUME (test code=MPV) 12.1 fL 6.7-11.0 NEUTROPHIL % (test code=NT%) 74.9 % 39.0-69.0 IMMATURE GRANULOCYTE % (test code=IG%) 0.7 % 0.0-5.0 LYMPHOCYTE % (test code=LY%) 16.8 % 25.0-55.0 MONOCYTE % (test code=MO%) 5.8 % 0.0-10.0 EOSINOPHIL % (test code=EO%) 1.5 % 0.0-5.0 BASOPHIL % (test code=BA%) 0.3 % 0.0-1.0 NUCLEATED RBC % (test code=NRBC%) 0.0 % 0-0 NEUTROPHIL # (test code=NT#) 8.74 K/mm3 1.8-7.7 IMMATURE GRANULOCYTE # (test code=IG#) 0.08 x10 3/uL 0-0.03 LYMPHOCYTE # (test code=LY#) 1.96 K/mm3 1.0-5.0 MONOCYTE # (test code=MO#) 0.68 K/mm3 0-0.8 EOSINOPHIL # (test code=EO#) 0.17 K/mm3 0.0-0.5 BASOPHIL # (test code=BA#) 0.04 K/mm3 0.0-0.2 NUCLEATED RBC # (test code=NRBC#) 0.00 K/mm3 0.0-0.1 MANUAL DIFF REQUIRED (test code=MDIFF) NO, ONLY SCAN NEEDED 06/20/19 1531DIFFERENTIAL [id number] 15:49:00* Test Item Value Reference Range Comments STAIN ACCEPTABILITY (test code=STN ACCEPTABLE) CABOT RINGS (test code=CAB) MORPHOLOGY COMMENT (test code=MOC) PLATELET ESTIMATE (test code=PLTEST) PLATELET MORPHOLOGY (test code=PLTMORPH) 06/20/19 1531BASIC METABOLIC [id number] 14:26:00* Test Item Value Reference Range Comments SODIUM (test code=NA) 145 mmol/L 136-145 POTASSIUM (test code=K) 3.4 mmol/L 3.5-5.1 CHLORIDE (test code=CL) 115.0 mmol/L 98-107 CARBON DIOXIDE (test code=CO2) 21.0 mmol/L 21-32 ANION GAP (test code=GAP) 12.4 10-20 GLUCOSE (test code=GLU) 168 mg/dL 74-106 BLOOD UREA NITROGEN (test code=BUN) 9 mg/dL 7-18 GLOMERULAR FILTRATION RATE (test code=GFR) > 60 mL/min >=60 Estimated GFR by using Modified MDRD formula.Chronic kidney disease is defined as either kidney damageor GFR <60 mL/min/1.73 m2 for >3 months. CREATININE (test code=CREAT) 0.70 mg/dL 0.55-1.02 Note change in reference range due to change in reagent. BUN/CREATININE RATIO (test code=BUN/CREA) 12.8 10-20 CALCIUM (test code=CA) 7.4 mg/dL 8.5-10.1 BASIC METABOLIC [id number] 14:22:00* Test Item Value Reference Range Comments SODIUM (test code=NA) 145 mmol/L 136-145 POTASSIUM (test code=K) 3.4 mmol/L 3.5-5.1 CHLORIDE (test code=CL) 115.0 mmol/L 98-107 CARBON DIOXIDE (test code=CO2) mmol/L 21-32 ANION GAP (test code=GAP) 10-20 GLUCOSE (test code=GLU) mg/dL 74-106 BLOOD UREA NITROGEN (test code=BUN) mg/dL 7-18 GLOMERULAR FILTRATION RATE (test code=GFR) mL/min >=60 CREATININE (test code=CREAT) mg/dL 0.55-1.02 BUN/CREATININE RATIO (test code=BUN/CREA) 10-20 CALCIUM (test code=CA) mg/dL 8.5-10.1 - XR CHEST 1 [id number] 13:34:00 FAX: Dandy Lopez MD [phone] [place]: [address]: ADM Name: NAD[facility] ADDISON [facility] : [birth year] 50 Age/S: 69/F [address] [facility] Unit #: [id number] Loc: V.2041 [place] [id number] Phys: Dandy Lopez MD Acct: [id number] Dis Date: Status: ADM IN PHONE #: [phone] Exam Date: 06/20/2019 1428 FAX #: [phone] Reason: SOB EXAMS: CPT CODE: [id number] XR CHEST 1 V 29452 HISTORY: Shortness of breath. COMPARISON: July 15, 2019. No acute infiltrates, effusion or congestion is noted. Mild cardiomegaly. IMPRESSION: No acute infiltrates, effusion or congestion. at 1331 Reported and signed by: Morgan Felton M.D. CC: Dandy Lopez MD Technologist: RT FREDDIE(Nadeem) Trnscrd Date/Time/By: 06/20/20 19 (6704) : By: [email or web address] Orig Print D/T: S: 06/20/2019 (2054) PAGE 1 Signed Report [id number] 13:15:00* Test Item Value Reference Range Comments GLUBED (test code=GLUBED) 150 mg/dL 74-106 Performed by certified leak operator paraffin plant at [facility] COAGULATION TIME [id number] 09:53:00* Test Item Value Reference Range Comments COAGULATION TIME ACTIVATED (test code=ACT) 122 seconds 62.8-88.0 [id number] 06:02:00* Test Item Value Reference Range Comments GLUBED (test code=GLUBED) 115 mg/dL 74-106 Performed by certified leak operator paraffin plant at [facility] HGB [id number] 22:19:00* Test Item Value Reference Range Comments HEMOGLOBIN (test code=HGB) 9.0 gram/dL 11.5-15.5 HEMATOCRIT (test code=HCT) 27.3 % 36.0-46.0 [id number] 21:01:00* Test Item Value Reference Range Comments GLUBED (test code=GLUBED) 180 mg/dL 74-106 Performed by certified leak operator paraffin plant at [facility] COAGULATION TIME [id number] 16:10:00* Test Item Value Reference Range Comments COAGULATION TIME ACTIVATED (test code=ACT) 198 seconds 62.8-88.0 COAGULATION TIME [id number] 15:08:00* Test Item Value Reference Range Comments COAGULATION TIME ACTIVATED (test code=ACT) 212 seconds 62.8-88.0 [id number] 14:08:00* Test Item Value Reference Range Comments GLUBED (test code=GLUBED) 140 mg/dL 74-106 Performed by certified leak operator paraffin plant at [facility] BASIC METABOLIC [id number] 12:42:00* Test Item Value Reference Range Comments SODIUM (test code=NA) 140 mmol/L 136-145 POTASSIUM (test code=K) 3.6 mmol/L 3.5-5.1 CHLORIDE (test code=CL) 107.0 mmol/L 98-107 CARBON DIOXIDE (test code=CO2) 27.0 mmol/L 21-32 ANION GAP (test code=GAP) 9.6 10-20 GLUCOSE (test code=GLU) 140 mg/dL 74-106 BLOOD UREA NITROGEN (test code=BUN) 12 mg/dL 7-18 GLOMERULAR FILTRATION RATE (test code=GFR) > 60 mL/min >=60 Estimated GFR by using Modified MDRD formula.Chronic kidney disease is defined as either kidney damageor GFR <60 mL/min/1.73 m2 for >3 months. CREATININE (test code=CREAT) 0.70 mg/dL 0.55-1.02 Note change in reference range due to change in reagent. BUN/CREATININE RATIO (test code=BUN/CREA) 17.5 10-20 CALCIUM (test code=CA) 8.5 mg/dL 8.5-10.1 CBC W/AUTO [id number] 12:26:00* Test Item Value Reference Range Comments WHITE BLOOD CELL (test code=WBC) 7.4 K/mm3 4.5-12.5 RED BLOOD CELL (test code=RBC) 3.88 mill/mm3 3.7-5.2 HEMOGLOBIN (test code=HGB) 10.6 gram/dL 11.5-15.5 HEMATOCRIT (test code=HCT) 32.4 % 36.0-46.0 MEAN CELL VOLUME (test code=MCV) 83.5 fL 80-98 MEAN CELL HGB (test code=MCH) 27.3 picogram 27.0-33.0 MEAN CELL HGB CONCETRATION (test code=MCHC) 32.7 gram/dL 33.0-36.0 RED CELL DISTRIBUTION WIDTH (test code=RDW) 13.6 % 11.6-16.2 RED CELL DISTRIBUTION WIDTH SD (test code=RDW-SD) 40.6 fL 37.0-51.0 PLATELET COUNT (test code=PLT) 386 K/mm3 150-450 MEAN PLATELET VOLUME (test code=MPV) 9.9 fL 6.7-11.0 NEUTROPHIL % (test code=NT%) 55.5 % 39.0-69.0 IMMATURE GRANULOCYTE % (test code=IG%) 0.5 % 0.0-5.0 LYMPHOCYTE % (test code=LY%) 27.3 % 25.0-55.0 MONOCYTE % (test code=MO%) 9.9 % 0.0-10.0 EOSINOPHIL % (test code=EO%) 6.4 % 0.0-5.0 BASOPHIL % (test code=BA%) 0.4 % 0.0-1.0 NUCLEATED RBC % (test code=NRBC%) 0.0 % 0-0 NEUTROPHIL # (test code=NT#) 4.11 K/mm3 1.8-7.7 IMMATURE GRANULOCYTE # (test code=IG#) 0.04 x10 3/uL 0-0.03 LYMPHOCYTE # (test code=LY#) 2.02 K/mm3 1.0-5.0 MONOCYTE # (test code=MO#) 0.73 K/mm3 0-0.8 EOSINOPHIL # (test code=EO#) 0.47 K/mm3 0.0-0.5 BASOPHIL # (test code=BA#) 0.03 K/mm3 0.0-0.2 NUCLEATED RBC # (test code=NRBC#) 0.00 K/mm3 0.0-0.1 [id number] 05:37:00* Test Item Value Reference Range Comments GLUBED (test code=GLUBED) 145 mg/dL 74-106 Performed by certified leak operator paraffin plant at [facility] [id number] 20:51:00* Test Item Value Reference Range Comments GLUBED (test code=GLUBED) 196 mg/dL 74-106 Performed by certified leak operator paraffin plant at [facility] [id number] 16:45:00* Test Item Value Reference Range Comments GLUBED (test code=GLUBED) 190 mg/dL 74-106 Performed by certified leak operator paraffin plant at [facility] [id number] 12:44:00* Test Item Value Reference Range Comments GLUBED (test code=GLUBED) 187 mg/dL 74-106 Performed by certified leak operator paraffin plant at [facility] [id number] 05:37:00* Test Item Value Reference Range Comments GLUBED (test code=GLUBED) 178 mg/dL 74-106 Performed by certified leak operator paraffin plant at [facility] [id number] 20:34:00* Test Item Value Reference Range Comments GLUBED (test code=GLUBED) 141 mg/dL 74-106 Performed by certified leak operator paraffin plant at [facility] [id number] 18:08:00* Test Item Value Reference Range Comments GLUBED (test code=GLUBED) 151 mg/dL 74-106 Performed by certified leak operator paraffin plant at [facility] [id number] 12:54:00* Test Item Value Reference Range Comments GLUBED (test code=GLUBED) 277 mg/dL 74-106 Performed by certified leak operator paraffin plant at [facility] [id number] 07:00:00* Test Item Value Reference Range Comments GLUBED (test code=GLUBED) 192 mg/dL 74-106 [facility] certified leak operator [facility]~ BASIC METABOLIC [id number] 05:17:00* Test Item Value Reference Range Comments SODIUM (test code=NA) 138 mmol/L 136-145 POTASSIUM (test code=K) 3.7 mmol/L 3.5-5.1 CHLORIDE (test code=CL) 104.0 mmol/L 98-107 CARBON DIOXIDE (test code=CO2) 26.0 mmol/L 21-32 ANION GAP (test code=GAP) 11.7 10-20 GLUCOSE (test code=GLU) 221 mg/dL 74-106 BLOOD UREA NITROGEN (test code=BUN) 15 mg/dL 7-18 GLOMERULAR FILTRATION RATE (test code=GFR) > 60 mL/min >=60 Estimated GFR by using Modified MDRD formula.Chronic kidney disease is defined as either kidney damageor GFR <60 mL/min/1.73 m2 for >3 months. CREATININE (test code=CREAT) 0.80 mg/dL 0.55-1.02 Note change in reference range due to change in reagent. BUN/CREATININE RATIO (test code=BUN/CREA) 19.4 10-20 CALCIUM (test code=CA) 8.3 mg/dL 8.5-10.1 CBC W/AUTO [id number] 05:03:00* Test Item Value Reference Range Comments WHITE BLOOD CELL (test code=WBC) 8.5 K/mm3 4.5-12.5 RED BLOOD CELL (test code=RBC) 3.88 mill/mm3 3.7-5.2 HEMOGLOBIN (test code=HGB) 10.7 gram/dL 11.5-15.5 HEMATOCRIT (test code=HCT) 32.1 % 36.0-46.0 MEAN CELL VOLUME (test code=MCV) 82.7 fL 80-98 MEAN CELL HGB (test code=MCH) 27.6 picogram 27.0-33.0 MEAN CELL HGB CONCETRATION (test code=MCHC) 33.3 gram/dL 33.0-36.0 RED CELL DISTRIBUTION WIDTH (test code=RDW) 13.5 % 11.6-16.2 RED CELL DISTRIBUTION WIDTH SD (test code=RDW-SD) 40.0 fL 37.0-51.0 PLATELET COUNT (test code=PLT) 391 K/mm3 150-450 MEAN PLATELET VOLUME (test code=MPV) 10.4 fL 6.7-11.0 NEUTROPHIL % (test code=NT%) 53.1 % 39.0-69.0 IMMATURE GRANULOCYTE % (test code=IG%) 0.5 % 0.0-5.0 LYMPHOCYTE % (test code=LY%) 32.0 % 25.0-55.0 MONOCYTE % (test code=MO%) 8.7 % 0.0-10.0 EOSINOPHIL % (test code=EO%) 5.2 % 0.0-5.0 BASOPHIL % (test code=BA%) 0.5 % 0.0-1.0 NUCLEATED RBC % (test code=NRBC%) 0.0 % 0-0 NEUTROPHIL # (test code=NT#) 4.51 K/mm3 1.8-7.7 IMMATURE GRANULOCYTE # (test code=IG#) 0.04 x10 3/uL 0-0.03 LYMPHOCYTE # (test code=LY#) 2.71 K/mm3 1.0-5.0 MONOCYTE # (test code=MO#) 0.74 K/mm3 0-0.8 EOSINOPHIL # (test code=EO#) 0.44 K/mm3 0.0-0.5 BASOPHIL # (test code=BA#) 0.04 K/mm3 0.0-0.2 NUCLEATED RBC # (test code=NRBC#) 0.00 K/mm3 0.0-0.1 MANUAL DIFF REQUIRED (test code=MDIFF) NO [id number] 20:55:00* Test Item Value Reference Range Comments GLUBED (test code=GLUBED) 147 mg/dL 74-106 [facility] leak [facility]~ [id number] 18:26:00* Test Item Value Reference Range Comments GLUBED (test code=GLUBED) 214 mg/dL 74-106 Performed by certified leak operator paraffin plant at [facility] BASIC METABOLIC [id number] 14:26:00* Test Item Value Reference Range Comments SODIUM (test code=NA) 138 mmol/L 136-145 POTASSIUM (test code=K) 3.9 mmol/L 3.5-5.1 CHLORIDE (test code=CL) 104.0 mmol/L 98-107 CARBON DIOXIDE (test code=CO2) 23.0 mmol/L 21-32 ANION GAP (test code=GAP) 14.9 10-20 GLUCOSE (test code=GLU) 314 mg/dL 74-106 BLOOD UREA NITROGEN (test code=BUN) 13 mg/dL 7-18 GLOMERULAR FILTRATION RATE (test code=GFR) > 60 mL/min >=60 Estimated GFR by using Modified MDRD formula.Chronic kidney disease is defined as either kidney damageor GFR <60 mL/min/1.73 m2 for >3 months. CREATININE (test code=CREAT) 0.80 mg/dL 0.55-1.02 Note change in reference range due to change in reagent. BUN/CREATININE RATIO (test code=BUN/CREA) 15.7 10-20 CALCIUM (test code=CA) 8.7 mg/dL 8.5-10.1 [id number] 14:26:00* Test Item Value Reference Range Comments PHOSPHORUS (test code=PHOS) 3.0 mg/dL 2.5-4.9 [id number] 14:26:00* Test Item Value Reference Range Comments MAGNESIUM (test code=MAG) 2.1 mg/dL 1.8-2.4 BASIC METABOLIC [id number] 14:22:00* Test Item Value Reference Range Comments SODIUM (test code=NA) 138 mmol/L 136-145 POTASSIUM (test code=K) 3.9 mmol/L 3.5-5.1 CHLORIDE (test code=CL) 104.0 mmol/L 98-107 CARBON DIOXIDE (test code=CO2) mmol/L 21-32 ANION GAP (test code=GAP) 10-20 GLUCOSE (test code=GLU) mg/dL 74-106 BLOOD UREA NITROGEN (test code=BUN) mg/dL 7-18 GLOMERULAR FILTRATION RATE (test code=GFR) mL/min >=60 CREATININE (test code=CREAT) mg/dL 0.55-1.02 BUN/CREATININE RATIO (test code=BUN/CREA) 10-20 CALCIUM (test code=CA) 8.7 mg/dL 8.5-10.1 [id number] 14:22:00* Test Item Value Reference Range Comments PHOSPHORUS (test code=PHOS) mg/dL 2.5-4.9 [id number] 14:22:00* Test Item Value Reference Range Comments MAGNESIUM (test code=MAG) mg/dL 1.8-2.4 BASIC METABOLIC [id number] 14:20:00* Test Item Value Reference Range Comments SODIUM (test code=NA) 138 mmol/L 136-145 POTASSIUM (test code=K) 3.9 mmol/L 3.5-5.1 CHLORIDE (test code=CL) 104.0 mmol/L 98-107 CARBON DIOXIDE (test code=CO2) mmol/L 21-32 ANION GAP (test code=GAP) 10-20 GLUCOSE (test code=GLU) mg/dL 74-106 BLOOD UREA NITROGEN (test code=BUN) mg/dL 7-18 GLOMERULAR FILTRATION RATE (test code=GFR) mL/min >=60 CREATININE (test code=CREAT) mg/dL 0.55-1.02 BUN/CREATININE RATIO (test code=BUN/CREA) 10-20 CALCIUM (test code=CA) mg/dL 8.5-10.1 [id number] 14:20:00* Test Item Value Reference Range Comments PHOSPHORUS (test code=PHOS) mg/dL 2.5-4.9 [id number] 14:20:00* Test Item Value Reference Range Comments MAGNESIUM (test code=MAG) mg/dL 1.8-2.4 CBC W/AUTO [id number] 14:13:00* Test Item Value Reference Range Comments WHITE BLOOD CELL (test code=WBC) 9.8 K/mm3 4.5-12.5 RED BLOOD CELL (test code=RBC) 3.80 mill/mm3 3.7-5.2 HEMOGLOBIN (test code=HGB) 10.4 gram/dL 11.5-15.5 HEMATOCRIT (test code=HCT) 31.6 % 36.0-46.0 MEAN CELL VOLUME (test code=MCV) 83.2 fL 80-98 MEAN CELL HGB (test code=MCH) 27.4 picogram 27.0-33.0 MEAN CELL HGB CONCETRATION (test code=MCHC) 32.9 gram/dL 33.0-36.0 RED CELL DISTRIBUTION WIDTH (test code=RDW) 13.5 % 11.6-16.2 RED CELL DISTRIBUTION WIDTH SD (test code=RDW-SD) 40.3 fL 37.0-51.0 PLATELET COUNT (test code=PLT) 355 K/mm3 150-450 MEAN PLATELET VOLUME (test code=MPV) 10.3 fL 6.7-11.0 NEUTROPHIL % (test code=NT%) 73.6 % 39.0-69.0 IMMATURE GRANULOCYTE % (test code=IG%) 0.7 % 0.0-5.0 LYMPHOCYTE % (test code=LY%) 16.6 % 25.0-55.0 MONOCYTE % (test code=MO%) 7.7 % 0.0-10.0 EOSINOPHIL % (test code=EO%) 1.0 % 0.0-5.0 BASOPHIL % (test code=BA%) 0.4 % 0.0-1.0 NUCLEATED RBC % (test code=NRBC%) 0.0 % 0-0 NEUTROPHIL # (test code=NT#) 7.19 K/mm3 1.8-7.7 IMMATURE GRANULOCYTE # (test code=IG#) 0.07 x10 3/uL 0-0.03 LYMPHOCYTE # (test code=LY#) 1.62 K/mm3 1.0-5.0 MONOCYTE # (test code=MO#) 0.75 K/mm3 0-0.8 EOSINOPHIL # (test code=EO#) 0.10 K/mm3 0.0-0.5 BASOPHIL # (test code=BA#) 0.04 K/mm3 0.0-0.2 NUCLEATED RBC # (test code=NRBC#) 0.00 K/mm3 0.0-0.1 [id number] 14:01:00* Test Item Value Reference Range Comments GLUBED (test code=GLUBED) 290 mg/dL 74-106 Performed by certified leak operator paraffin plant at [facility] [id number] 08:31:00* Test Item Value Reference Range Comments GLUBED (test code=GLUBED) 192 mg/dL 74-106 Performed by certified leak operator paraffin plant at [facility] [id number] 21:29:00* Test Item Value Reference Range Comments GLUBED (test code=GLUBED) 259 mg/dL 74-106 Performed by certified leak operator paraffin plant at [facility] [id number] 17:21:00* Test Item Value Reference Range Comments GLUBED (test code=GLUBED) 309 mg/dL 74-106 Performed by certified leak operator paraffin plant at [facility] [id number] 06:04:00* Test Item Value Reference Range Comments GLUBED (test code=GLUBED) 234 mg/dL 74-106 Performed by certified leak operator paraffin plant at [facility] [id number] 18:45:00* Test Item Value Reference Range Comments GLUBED (test code=GLUBED) 210 mg/dL 74-106 Performed by certified leak operator paraffin plant at [facility] [id number] 18:45:00* Test Item Value Reference Range Comments GLUBED (test code=GLUBED) 224 mg/dL 74-106 Performed by certified leak operator paraffin plant at [facility] [id number] 18:45:00* Test Item Value Reference Range Comments GLUBED (test code=GLUBED) 202 mg/dL 74-106 Performed by certified leak operator paraffin plant at [facility] [id number] 14:30:00* Test Item Value Reference Range Comments TROPONIN-I (test code=TROPI) 2.530 ng/mL 0-0.045 Results called to [id number] by KENIA 06/14/19 1429Critical results verified and read back by Nurse? Y COMMENTS TO VISITOR INFORMATION ASSISTANT: COLLECT 3 HOURS AFTER PREVIOUS [id number] 11:29:00* Test Item Value Reference Range Comments TROPONIN-I (test code=TROPI) 0.021 ng/mL 0-0.045 [id number] 09:54:00* Test Item Value Reference Range Comments GLYCOSYLATED HEMOGLOBIN (HA1C) (test code=GLYHGB) 13.0 % HbA1 4.8-6.0 ESTIMATED AVERAGE GLUCOSE (test code=EAG) 326 MG/DL LIPID PROFILE (CORONARY RISK)2019-06-14 09:54:00* Test Item Value Reference Range Comments TRIGLYCERIDES (test code=TRIG) 202 mg/dL 20-150 CHOLESTEROL (test code=CHOL) 189 mg/dL 0-200 CHOLESTEROL/HDL RATIO (test code=CHOLHDL) 6.0 RATIO 0-4.9 RISK ASSOCIATED WITH CHOL/HDL RATIOS: Risk Male Female1/2 AVERAGE 3.43 3.27AVERAGE 4.97 4.442X AVERAGE 9.55 7.053X AVERAGE 23.39 11.04 REFERENCE VALUE IS RELATED TO RISK LEVELS ASRECOMMENDED BY THE MELONY. HEART, LUNG, AND BLOOD INST. HDL CHOLESTEROL (test code=HDL) 29 mg/dL 40-60 LIPOPROTEIN LDL (test code=LDL) 121 mg/dL 100-129 RN PERSONNEL, CONTACT PHYSICIAN IMMEDIATELY IF THIS IS A STROKE, AMI OR CAROTID STENOSIS PATIENT WHEN THE LDL >100 (1ST OCCURENCE, THIS ADMISSION) Reference Interval: mg/dL mmol/L Optimal <100 <2.6Near/above optimal 100-129 2.6- 3.3Borderline High 130-159 3.4-4.1High 160-189 4.1-4.9Very High >=190 >=4.9=========This LDL result is a direct measurement.========= [id number] 09:22:00* Test Item Value Reference Range Comments TROPONIN-I (test code=TROPI) 2.150 ng/mL 0-0.045 COMMENTS TO VISITOR INFORMATION ASSISTANT: COLLECT 3 HOURS AFTER PREVIOUS SAMPLEB-TYPE NATRIURETIC [id number] 02:19:00* Test Item Value Reference Range Comments B-TYPE NATRIURETIC PEPTIDE (test code=BNP) 141.89 pgram/mL 0-100 BASIC METABOLIC [id number] 01:44:00* Test Item Value Reference Range Comments SODIUM (test code=NA) 136 mmol/L 136-145 POTASSIUM (test code=K) 3.3 mmol/L 3.5-5.1 CHLORIDE (test code=CL) 104.0 mmol/L 98-107 CARBON DIOXIDE (test code=CO2) 22.0 mmol/L 21-32 ANION GAP (test code=GAP) 13.3 10-20 GLUCOSE (test code=GLU) 204 mg/dL 74-106 BLOOD UREA NITROGEN (test code=BUN) 14 mg/dL 7-18 GLOMERULAR FILTRATION RATE (test code=GFR) > 60 mL/min >=60 Estimated GFR by using Modified MDRD formula.Chronic kidney disease is defined as either kidney damageor GFR <60 mL/min/1.73 m2 for >3 months. CREATININE (test code=CREAT) 0.70 mg/dL 0.55-1.02 Note change in reference range due to change in reagent. BUN/CREATININE RATIO (test code=BUN/CREA) 20.0 10-20 CALCIUM (test code=CA) 8.3 mg/dL 8.5-10.1 [id number] 01:44:00* Test Item Value Reference Range Comments TROPONIN-I (test code=TROPI) 1.230 ng/mL 0-0.045 Results called to [id number] by KARON 06/14/19 0143Critical results verified and read back by Nurse? Y PROTHROMBIN [id number] 01:39:00* Test Item Value Reference Range Comments PROTHROMBIN TIME PATIENT (test code=PTP) 13.3 seconds 9.0-14.0 INTERNATIONAL NORMAL RATIO (test code=INR) 1.1 0.8-1.2 The therapeutic range for oral anticoagulant therapy formost indications is an international normalized ratio (INR)of between 2.0 and 3.0. The recommended therapeutic INRrange for various clinical situations is listed below: Clinical Situation INR range Pulmonary e mbolism treatment (2.0-3.0)Venous thrombosis treatmentVenous thrombosis prophylaxis (high risk surgery)Prevention of systemic embolism from: Acute myocardial infarction Valvular heart disease Atrial fibrillation Mechanical prosthetic heart valves (2.5-3.5) IS PATIENT ON ANTICOAGULANTS? NTHROMBOPLASTIN TIME [id number] 01:39:00* Test Item Value Reference Range Comments THROMBOPLASTIN TIME PARTIAL (test code=PTT) 30.7 seconds 25.0-36.5 IS PATIENT ON ANTICOAGULANTS? NCBC W/O [id number] 01:27:00* Test Item Value Reference Range Comments WHITE BLOOD CELL (test code=WBC) 10.9 K/mm3 4.5-12.5 RED BLOOD CELL (test code=RBC) 3.69 mill/mm3 3.7-5.2 HEMOGLOBIN (test code=HGB) 10.4 gram/dL 11.5-15.5 HEMATOCRIT (test code=HCT) 29.9 % 36.0-46.0 MEAN CELL VOLUME (test code=MCV) 81.0 fL 80-98 MEAN CELL HGB (test code=MCH) 28.2 picogram 27.0-33.0 MEAN CELL HGB CONCETRATION (test code=MCHC) 34.8 gram/dL 33.0-36.0 RED CELL DISTRIBUTION WIDTH (test code=RDW) 13.2 % 11.6-16.2 PLATELET COUNT (test code=PLT) 282 K/mm3 150-450 MEAN PLATELET VOLUME (test code=MPV) 10.9 fL 6.7-11.0 BASIC METABOLIC [id number] 01:25:00* Test Item Value Reference Range Comments SODIUM (test code=NA) 136 mmol/L 136-145 POTASSIUM (test code=K) 3.3 mmol/L 3.5-5.1 CHLORIDE (test code=CL) 104.0 mmol/L 98-107 CARBON DIOXIDE (test code=CO2) mmol/L 21-32 ANION GAP (test code=GAP) 10-20 GLUCOSE (test code=GLU) mg/dL 74-106 BLOOD UREA NITROGEN (test code=BUN) mg/dL 7-18 GLOMERULAR FILTRATION RATE (test code=GFR) mL/min >=60 CREATININE (test code=CREAT) mg/dL 0.55-1.02 BUN/CREATININE RATIO (test code=BUN/CREA) 10-20 CALCIUM (test code=CA) mg/dL 8.5-10.1 [id number] 01:25:00* Test Item Value Reference Range Comments TROPONIN-I (test code=TROPI) ng/mL 0-0.045 - XR CHEST 1 [id number] 01:18:00 FAX: Jad Graves [place]: B St: PRE Name: NADYA ADDISON [facility] : [birth year] Age/S: 69/F [address] [facility] Unit #: [id number] Loc: [place] [address] Phys: Jad Graves MD Acct: [id number] Dis Date: Status: PRE ER PHONE #: [phone] Exam Date: 06/14/2019 0059 FAX #: [phone] Reason: CHEST PAIN EXAMS: CPT CODE: [id number] XR CHEST 1 V [id number] - XR CHEST 1 V, 06/14/2019 12:45 AM Reason For Examination: CHEST PAIN Comparison: March 23, 2014 Location: R16 Findings [place] NGS: Nonspecific interstitial opacities may reflect pneumonitis versus edema PLEURA: No pleural effusions CARDI OMEDIASTINAL SILHOUETTE Unremarkable IMPRESSION: Nonspecific interstitial opacities may reflect pneumonitis versus edema at 0118 Reported and signed by: Muriel Diaz M.D. CC: Jad Russo MD Technologist: Priti Mendoza Trnscrd Date/Time/By: 06/14/2019 (0118) : By: [email or web address] Orig Print D/T: S: 06/14/2019 (0121) PAGE 1 Signed Report TROPONIN I [id number] 01:17:00* Test Item Value Reference Range Comments TROPONIN I RAPID (test code=TROPIRAP) 1.26 ng/mL <0.08 Please Note New Reference Range 0.00-0.079 ng/mL - Negative>or=0.08 ng/mL - Positive The use of serial sampling and testing protocol is arecommended practice.An elevated troponin level alone is often not sufficient fordiagnosis of myocardial infarction. Troponin results obtained by different assays may vary.Evaluation of the extent of myocardial damage based onincrease of troponin would be valid only if similarmethodology is used. [id number] 11:00:00* Test Item Value Reference Range Comments GLUBED (test code=GLUBED) 321 mg/dL 74-106 Performed by certified leak operator paraffin plant at [facility] COAGULATION TIME [id number] 07:06:00* Test Item Value Reference Range Comments COAGULATION TIME ACTIVATED (test code=ACT) 207 seconds 62.8-88.0 [id number] 05:16:00* Test Item Value Reference Range Comments GLUBED (test code=GLUBED) 193 mg/dL 74-106 Performed by certified leak operator paraffin plant at [facility] [id number] 20:53:00* Test Item Value Reference Range Comments GLUBED (test code=GLUBED) 213 mg/dL 74-106 Performed by certified leak operator paraffin plant at [facility] [id number] 20:03:00* Test Item Value Reference Range Comments GLUBED (test code=GLUBED) 295 mg/dL 74-106 Performed by certified leak operator paraffin plant at [facility] [id number] 13:14:00* Test Item Value Reference Range Comments GLUBED (test code=GLUBED) 274 mg/dL 74-106 Performed by certified leak operator paraffin plant at [facility] [id number] 07:28:00* Test Item Value Reference Range Comments GLUBED (test code=GLUBED) 260 mg/dL 74-106 Performed by certified leak operator paraffin plant at [facility] BASIC METABOLIC [id number] 04:11:00* Test Item Value Reference Range Comments SODIUM (test code=NA) 143 mmol/L 136-145 POTASSIUM (test code=K) 3.3 mmol/L 3.5-5.1 CHLORIDE (test code=CL) 109.0 mmol/L 98-107 CARBON DIOXIDE (test code=CO2) 23.0 mmol/L 21-32 ANION GAP (test code=GAP) 14.3 10-20 GLUCOSE (test code=GLU) 248 mg/dL 74-106 BLOOD UREA NITROGEN (test code=BUN) 19 mg/dL 7-18 GLOMERULAR FILTRATION RATE (test code=GFR) > 60 mL/min >=60 Estimated GFR by using Modified MDRD formula.Chronic kidney disease is defined as either kidney damageor GFR <60 mL/min/1.73 m2 for >3 months. CREATININE (test code=CREAT) 0.70 mg/dL 0.55-1.02 Note change in reference range due to change in reagent. BUN/CREATININE RATIO (test code=BUN/CREA) 25.7 10-20 CALCIUM (test code=CA) 7.7 mg/dL 8.5-10.1 [id number] 04:11:00* Test Item Value Reference Range Comments MAGNESIUM (test code=MAG) 1.7 mg/dL 1.8-2.4 BASIC METABOLIC [id number] 04:06:00* Test Item Value Reference Range Comments SODIUM (test code=NA) 143 mmol/L 136-145 POTASSIUM (test code=K) 3.3 mmol/L 3.5-5.1 CHLORIDE (test code=CL) 109.0 mmol/L 98-107 CARBON DIOXIDE (test code=CO2) mmol/L 21-32 ANION GAP (test code=GAP) 10-20 GLUCOSE (test code=GLU) mg/dL 74-106 BLOOD UREA NITROGEN (test code=BUN) mg/dL 7-18 GLOMERULAR FILTRATION RATE (test code=GFR) mL/min >=60 CREATININE (test code=CREAT) mg/dL 0.55-1.02 BUN/CREATININE RATIO (test code=BUN/CREA) 10-20 CALCIUM (test code=CA) mg/dL 8.5-10.1 [id number] 04:06:00* Test Item Value Reference Range Comments MAGNESIUM (test code=MAG) mg/dL 1.8-2.4 CBC W/AUTO [id number] 03:43:00* Test Item Value Reference Range Comments WHITE BLOOD CELL (test code=WBC) 10.7 K/mm3 4.5-12.5 RED BLOOD CELL (test code=RBC) 3.80 mill/mm3 3.7-5.2 HEMOGLOBIN (test code=HGB) 10.5 gram/dL 11.5-15.5 HEMATOCRIT (test code=HCT) 30.7 % 36.0-46.0 MEAN CELL VOLUME (test code=MCV) 80.8 fL 80-98 MEAN CELL HGB (test code=MCH) 27.6 picogram 27.0-33.0 MEAN CELL HGB CONCETRATION (test code=MCHC) 34.2 gram/dL 33.0-36.0 RED CELL DISTRIBUTION WIDTH (test code=RDW) 13.8 % 11.6-16.2 RED CELL DISTRIBUTION WIDTH SD (test code=RDW-SD) 40.1 fL 37.0-51.0 PLATELET COUNT (test code=PLT) 188 K/mm3 150-450 RESULT VERIFIED BY REPEAT ANALYSIS MEAN PLATELET VOLUME (test code=MPV) 11.6 fL 6.7-11.0 NEUTROPHIL % (test code=NT%) 64.4 % 39.0-69.0 IMMATURE GRANULOCYTE % (test code=IG%) 0.4 % 0.0-5.0 LYMPHOCYTE % (test code=LY%) 24.9 % 25.0-55.0 MONOCYTE % (test code=MO%) 7.7 % 0.0-10.0 EOSINOPHIL % (test code=EO%) 2.0 % 0.0-5.0 BASOPHIL % (test code=BA%) 0.6 % 0.0-1.0 NUCLEATED RBC % (test code=NRBC%) 0.0 % 0-0 NEUTROPHIL # (test code=NT#) 6.91 K/mm3 1.8-7.7 IMMATURE GRANULOCYTE # (test code=IG#) 0.04 x10 3/uL 0-0.03 LYMPHOCYTE # (test code=LY#) 2.66 K/mm3 1.0-5.0 MONOCYTE # (test code=MO#) 0.82 K/mm3 0-0.8 EOSINOPHIL # (test code=EO#) 0.21 K/mm3 0.0-0.5 BASOPHIL # (test code=BA#) 0.06 K/mm3 0.0-0.2 NUCLEATED RBC # (test code=NRBC#) 0.00 K/mm3 0.0-0.1 MANUAL DIFF REQUIRED (test code=MDIFF) NO [id number] 00:23:00* Test Item Value Reference Range Comments GLUBED (test code=GLUBED) 240 mg/dL 74-106 Performed by certified leak operator paraffin plant at [facility] [id number] 19:35:00* Test Item Value Reference Range Comments GLUBED (test code=GLUBED) 204 mg/dL 74-106 Performed by certified leak operator paraffin plant at [facility] [id number] 16:32:00* Test Item Value Reference Range Comments GLUBED (test code=GLUBED) 186 mg/dL 74-106 Performed by certified leak operator paraffin plant at [facility] [id number] 08:02:00* Test Item Value Reference Range Comments GLUBED (test code=GLUBED) 379 mg/dL 74-106 Performed by certified leak operator paraffin plant at [facility] [id number] 04:05:00* Test Item Value Reference Range Comments GLYCOSYLATED HEMOGLOBIN (HA1C) (test code=GLYHGB) 13.5 % HbA1 4.8-6.0 ESTIMATED AVERAGE GLUCOSE (test code=EAG) 341 MG/DL COMPREHENSIVE METABOLIC [id number] 03:43:00* Test Item Value Reference Range Comments SODIUM (test code=NA) 137 mmol/L 136-145 POTASSIUM (test code=K) 4.9 mmol/L 3.5-5.1 CHLORIDE (test code=CL) 104.0 mmol/L 98-107 CARBON DIOXIDE (test code=CO2) 21.0 mmol/L 21-32 ANION GAP (test code=GAP) 16.9 10-20 GLUCOSE (test code=GLU) 436 mg/dL 74-106 BLOOD UREA NITROGEN (test code=BUN) 17 mg/dL 7-18 GLOMERULAR FILTRATION RATE (test code=GFR) > 60 mL/min >=60 Estimated GFR by using Modified MDRD formula.Chronic kidney disease is defined as either kidney damageor GFR <60 mL/min/1.73 m2 for >3 months. CREATININE (test code=CREAT) 0.90 mg/dL 0.55-1.02 Note change in reference range due to change in reagent. BUN/CREATININE RATIO (test code=BUN/CREA) 18.3 10-20 TOTAL PROTEIN (test code=PROT) 6.9 gram/dL 6.4-8.2 ALBUMIN (test code=ALB) 2.8 g/dL 3.4-5.0 GLOBULIN (test code=GLOB) 4.1 gram/dL 2.7-4.2 ALBUMIN/GLOBULIN RATIO (test code=A/G) 0.7 0.75-1.50 CALCIUM (test code=CA) 7.9 mg/dL 8.5-10.1 BILIRUBIN TOTAL (test code=BILT) 0.60 mg/dL 0.0-1.0 SGOT/AST (test code=AST) 152 IUnit/L 15-37 SGPT/ALT (test code=ALT) 50 IUnit/L 12-78 ALKALINE PHOSPHATASE TOTAL (test code=ALKP) 101 IUnit/L 45-117 Note change in reference range due to change in reagent. CBC W/AUTO [id number] 03:37:00* Test Item Value Reference Range Comments WHITE BLOOD CELL (test code=WBC) 12.6 K/mm3 4.5-12.5 RED BLOOD CELL (test code=RBC) 4.38 mill/mm3 3.7-5.2 HEMOGLOBIN (test code=HGB) 12.0 gram/dL 11.5-15.5 RESULT VERIFIED BY REPEAT ANALYSIS HEMATOCRIT (test code=HCT) 35.5 % 36.0-46.0 MEAN CELL VOLUME (test code=MCV) 81.1 fL 80-98 MEAN CELL HGB (test code=MCH) 27.4 picogram 27.0-33.0 MEAN CELL HGB CONCETRATION (test code=MCHC) 33.8 gram/dL 33.0-36.0 RED CELL DISTRIBUTION WIDTH (test code=RDW) 13.8 % 11.6-16.2 RED CELL DISTRIBUTION WIDTH SD (test code=RDW-SD) 40.4 fL 37.0-51.0 PLATELET COUNT (test code=PLT) 246 K/mm3 150-450 MEAN PLATELET VOLUME (test code=MPV) 11.4 fL 6.7-11.0 NEUTROPHIL % (test code=NT%) 84.6 % 39.0-69.0 IMMATURE GRANULOCYTE % (test code=IG%) 0.6 % 0.0-5.0 LYMPHOCYTE % (test code=LY%) 10.1 % 25.0-55.0 MONOCYTE % (test code=MO%) 4.3 % 0.0-10.0 EOSINOPHIL % (test code=EO%) 0.1 % 0.0-5.0 BASOPHIL % (test code=BA%) 0.3 % 0.0-1.0 NUCLEATED RBC % (test code=NRBC%) 0.0 % 0-0 NEUTROPHIL # (test code=NT#) 10.66 K/mm3 1.8-7.7 IMMATURE GRANULOCYTE # (test code=IG#) 0.07 x10 3/uL 0-0.03 LYMPHOCYTE # (test code=LY#) 1.27 K/mm3 1.0-5.0 MONOCYTE # (test code=MO#) 0.54 K/mm3 0-0.8 EOSINOPHIL # (test code=EO#) 0.01 K/mm3 0.0-0.5 BASOPHIL # (test code=BA#) 0.04 K/mm3 0.0-0.2 NUCLEATED RBC # (test code=NRBC#) 0.00 K/mm3 0.0-0.1 MANUAL DIFF REQUIRED (test code=MDIFF) NO COMPREHENSIVE METABOLIC [id number] 03:34:00* Test Item Value Reference Range Comments SODIUM (test code=NA) 137 mmol/L 136-145 POTASSIUM (test code=K) 4.9 mmol/L 3.5-5.1 CHLORIDE (test code=CL) 104.0 mmol/L 98-107 CARBON DIOXIDE (test code=CO2) mmol/L 21-32 ANION GAP (test code=GAP) 10-20 GLUCOSE (test code=GLU) mg/dL 74-106 BLOOD UREA NITROGEN (test code=BUN) mg/dL 7-18 GLOMERULAR FILTRATION RATE (test code=GFR) mL/min >=60 CREATININE (test code=CREAT) mg/dL 0.55-1.02 BUN/CREATININE RATIO (test code=BUN/CREA) 10-20 TOTAL PROTEIN (test code=PROT) gram/dL 6.4-8.2 ALBUMIN (test code=ALB) g/dL 3.4-5.0 GLOBULIN (test code=GLOB) gram/dL 2.7-4.2 ALBUMIN/GLOBULIN RATIO (test code=A/G) 0.75-1.50 CALCIUM (test code=CA) mg/dL 8.5-10.1 BILIRUBIN TOTAL (test code=BILT) mg/dL 0.0-1.0 SGOT/AST (test code=AST) IUnit/L 15-37 SGPT/ALT (test code=ALT) IUnit/L 12-78 ALKALINE PHOSPHATASE TOTAL (test code=ALKP) IUnit/L 45-117 [id number] 00:06:00* Test Item Value Reference Range Comments TROPONIN-I (test code=TROPI) 32.400 ng/mL 0-0.045 COMMENTS TO VISITOR INFORMATION ASSISTANT: COLLECT 3 HOURS AFTER PREVIOUS SAMPLELIPID PROFILE (CORONARY RISK)2019-06-08 23:07:00* Test Item Value Reference Range Comments TRIGLYCERIDES (test code=TRIG) 448 mg/dL 20-150 CHOLESTEROL (test code=CHOL) 218 mg/dL 0-200 CHOLESTEROL/HDL RATIO (test code=CHOLHDL) 7.0 RATIO 0-4.9 RISK ASSOCIATED WITH CHOL/HDL RATIOS: Risk Male Female1/2 AVERAGE 3.43 3.27AVERAGE 4.97 4.442X AVERAGE 9.55 7.053X AVERAGE 23.39 11.04 REFERENCE VALUE IS RELATED TO RISK LEVELS ASRECOMMENDED BY THE [facility]ON[facility]. HEART, LUNG, AND BLOOD INST. HDL CHOLESTEROL (test code=HDL) 28 mg/dL 40-60 LIPOPROTEIN LDL (test code=LDL) 138 mg/dL 100-129 RN PERSONNEL, CONTACT PHYSICIAN IMMEDIATELY IF THIS IS A STROKE, AMI OR CAROTID STENOSIS PATIENT WHEN THE LDL >100 (1ST OCCURENCE, THIS ADMISSION) Reference Interval: mg/dL mmol/L Optimal <100 <2.6Near/above optimal 100-129 2.6- 3.3Borderline High 130-159 3.4-4.1High 160-189 4.1-4.9Very High >=190 >=4.9=========This LDL result is a direct measurement.========= SPECIMEN COMMENTS: If not [id number] 21:54:00* Test Item Value Reference Range Comments GLUBED (test code=GLUBED) 441 mg/dL 74-106 Performed by certified leak operator paraffin plant at [facility] [id number] 21:30:00* Test Item Value Reference Range Comments TROPONIN-I (test code=TROPI) 30.700 ng/mL 0-0.045 Results called to [id number] by [email or web address] 06/08/19 2130Critical results verified and read back by Nurse? Y COMMENTS TO VISITOR INFORMATION ASSISTANT: COLLECT 3 HOURS AFTER PREVIOUS SAMPLECOAGULATION TIME [id number] 16:04:00* Test Item Value Reference Range Comments COAGULATION TIME ACTIVATED (test code=ACT) 285 seconds 62.8-88.0 BASIC METABOLIC [id number] 14:24:00* Test Item Value Reference Range Comments SODIUM (test code=NA) 136 mmol/L 136-145 POTASSIUM (test code=K) 3.6 mmol/L 3.5-5.1 CHLORIDE (test code=CL) 105.0 mmol/L 98-107 CARBON DIOXIDE (test code=CO2) 20.0 mmol/L 21-32 ANION GAP (test code=GAP) 14.6 10-20 GLUCOSE (test code=GLU) 437 mg/dL 74-106 BLOOD UREA NITROGEN (test code=BUN) 16 mg/dL 7-18 GLOMERULAR FILTRATION RATE (test code=GFR) > 60 mL/min >=60 Estimated GFR by using Modified MDRD formula.Chronic kidney disease is defined as either kidney damageor GFR <60 mL/min/1.73 m2 for >3 months. CREATININE (test code=CREAT) 0.80 mg/dL 0.55-1.02 Note change in reference range due to change in reagent. BUN/CREATININE RATIO (test code=BUN/CREA) 19.3 10-20 CALCIUM (test code=CA) 8.5 mg/dL 8.5-10.1 [id number] 14:24:00* Test Item Value Reference Range Comments TROPONIN-I (test code=TROPI) <0.015 ng/mL 0-0.045 BASIC METABOLIC [id number] 14:21:00* Test Item Value Reference Range Comments SODIUM (test code=NA) 136 mmol/L 136-145 POTASSIUM (test code=K) 3.6 mmol/L 3.5-5.1 CHLORIDE (test code=CL) 105.0 mmol/L 98-107 CARBON DIOXIDE (test code=CO2) mmol/L 21-32 ANION GAP (test code=GAP) 10-20 GLUCOSE (test code=GLU) mg/dL 74-106 BLOOD UREA NITROGEN (test code=BUN) mg/dL 7-18 GLOMERULAR FILTRATION RATE (test code=GFR) mL/min >=60 CREATININE (test code=CREAT) mg/dL 0.55-1.02 BUN/CREATININE RATIO (test code=BUN/CREA) 10-20 CALCIUM (test code=CA) mg/dL 8.5-10.1 [id number] 14:21:00* Test Item Value Reference Range Comments TROPONIN-I (test code=TROPI) ng/mL 0-0.045 CBC W/O [id number] 14:03:00* Test Item Value Reference Range Comments WHITE BLOOD CELL (test code=WBC) K/mm3 4.5-12.5 RED BLOOD CELL (test code=RBC) mill/mm3 3.7-5.2 HEMOGLOBIN (test code=HGB) 14.3 gram/dL 11.5-15.5 HEMATOCRIT (test code=HCT) 42.0 % 36.0-46.0 MEAN CELL VOLUME (test code=MCV) fL 80-98 MEAN CELL HGB (test code=MCH) picogram 27.0-33.0 MEAN CELL HGB CONCETRATION (test code=MCHC) gram/dL 33.0-36.0 RED CELL DISTRIBUTION WIDTH (test code=RDW) % 11.6-16.2 PLATELET COUNT (test code=PLT) K/mm3 150-450 MEAN PLATELET VOLUME (test code=MPV) fL 6.7-11.0 CBC W/O [id number] 14:03:00* Test Item Value Reference Range Comments WHITE BLOOD CELL (test code=WBC) 11.6 K/mm3 4.5-12.5 RED BLOOD CELL (test code=RBC) 5.18 mill/mm3 3.7-5.2 HEMOGLOBIN (test code=HGB) 14.3 gram/dL 11.5-15.5 HEMATOCRIT (test code=HCT) 42.0 % 36.0-46.0 MEAN CELL VOLUME (test code=MCV) 81.1 fL 80-98 MEAN CELL HGB (test code=MCH) 27.6 picogram 27.0-33.0 MEAN CELL HGB CONCETRATION (test code=MCHC) 34.0 gram/dL 33.0-36.0 RED CELL DISTRIBUTION WIDTH (test code=RDW) 13.4 % 11.6-16.2 PLATELET COUNT (test code=PLT) 247 K/mm3 150-450 MEAN PLATELET VOLUME (test code=MPV) 11.3 fL 6.7-11.0 TROPONIN I [id number] 13:58:00* Test Item Value Reference Range Comments TROPONIN I RAPID (test code=TROPIRAP) 0.02 ng/mL <0.08 Please Note New Reference Range 0.00-0.079 ng/mL - Negative>or=0.08 ng/mL - Positive The use of serial sampling and testing protocol is arecommended practice.An elevated troponin level alone is often not sufficient fordiagnosis of myocardial infarction. Troponin results obtained by different assays may vary.Evaluation of the extent of myocardial damage based onincrease of troponin would be valid only if similarmethodology is used.
[2019-07-21 19:16] LABS: BASOPHILS # (AUTO) 0.1 (0.0-0.1); BASOPHILS % 0.4 % (0.0-1.0); EOSINOPHILS # (AUTO) 0.2 (0.0-0.4); EOSINOPHILS % 1.5 % (0.0-6.0); HEMATOCRIT 36.1 % (34.2-44.1); HEMOGLOBIN 11.7 g/dL (12.0-16.0); LYMPHOCYTES # (AUTO) 2.2 (1.0-3.2); LYMPHOCYTES % 16.6 % (18.0-39.1); MEAN CORPUSCULAR HEMOGLOBIN 26.7 pg (28-32); MEAN CORPUSCULAR HGB CONC 32.4 g/dL (31-35); MEAN CORPUSCULAR VOLUME 82.2 fL (81-99); MONOCYTES # (AUTO) 1.2 (0.2-0.8); MONOCYTES % 9.3 % (4.4-11.3); NEUTROPHILS # (AUTO) 9.4 (2.1-6.9); NEUTROPHILS % 71.7 % (38.7-80.0); PLATELET COUNT 306 x10e3/uL (140-360); RED BLOOD COUNT 4.39 x10e6/uL (3.6-5.1); RED CELL DISTRIBUTION WIDTH 14.2 % (11.7-14.4)
[2019-07-21] MEDS ORDERED: HYDROCODONE/APAP 7.5MG-325MG 1 EA TAB PO ONE (19:30)
[2019-07-21] MEDS ORDERED: DIAZEPAM 5 MG TAB PO ONE (19:30)
[2019-07-21 19:32] LABS: ALANINE AMINOTRANSFERASE 13 IU/L (0-55); ALBUMIN 3.1 g/dL (3.5-5.0); ALBUMIN/GLOBULIN RATIO 0.6 (0.8-2.0); ALKALINE PHOSPHATASE 119 IU/L (40-150); ANION GAP 12.6 mmol/L (8-16); BLOOD UREA NITROGEN 11 mg/dL (7-26); BUN/CREATININE RATIO 14 (6-25); CALCIUM 9.5 mg/dL (8.4-10.2); CARBON DIOXIDE 25 mmol/L (22-29); CHLORIDE 101 mmol/L (98-107); CREATINE KINASE 31 IU/L (29-168); CREATININE, SERUM 0.78 mg/dL (0.57-1.11); EST GLOMERULAR FILTRATION RATE > 60 ML/MIN (60-); GLUCOSE 117 mg/dL (74-118); POTASSIUM 3.6 mmol/L (3.5-5.1); SODIUM 135 mmol/L (136-145)
--- NOTE | 2019-07-21 19:57 | Diagnostic Imaging Report ---
EXAMINATION: CHEST 2 VIEWS INDICATION: Right back pain, muscular. COMPARISON: None FINDINGS: TUBES and LINES: None. LUNGS: Lungs are moderately inflated. Mild patchy left basilar opacity. There is no evidence of lobar pneumonia or pulmonary edema. PLEURA: No pleural effusion or pneumothorax. HEART AND MEDIASTINUM: The cardiomediastinal silhouette is unremarkable. BONES AND SOFT TISSUES: No acute osseous abnormality. UPPER ABDOMEN: No free air under the diaphragm. IMPRESSION: Mild patchy left basilar opacity, likely atelectasis. Signed by: Dr. Yani Whitlock MD on 07/21/2019 7:54 PM
[2019-07-21 21:58] VITALS: BP 142/69
== END 2019-07-21 22:12 | disposition home or self-care (01) ==
LOC: ER 18:06
DX: S23.3XXA Sprain of ligaments of thoracic spine, initial encounter (principal); S39.012A Strain of muscle, fascia and tendon of lower back, initial encounter; I10 Essential (primary) hypertension; E11.9 Type 2 diabetes mellitus without complications; E78.5 Hyperlipidemia, unspecified; I25.10 Atherosclerotic heart disease of native coronary artery without angina pectoris; I25.2 Old myocardial infarction
CPT/HCPCS: 36415; 71046; 80053; 82550; 82553; 84484; 85025; 93005; 99284

== ENCOUNTER 2021-06-16 20:30 | Emergency (ER) | payer MEDICARE ==
[~2021-06-16] VITALS: Ht 152.4 cm; Wt 78.9 kg
== END 2021-06-16 21:01 | disposition home or self-care (01) ==
LOC: ER 20:57
DX: L60.0 Ingrowing nail (principal); I10 Essential (primary) hypertension; E11.9 Type 2 diabetes mellitus without complications; E78.5 Hyperlipidemia, unspecified; I25.10 Atherosclerotic heart disease of native coronary artery without angina pectoris; I25.2 Old myocardial infarction; Z95.5 Presence of coronary angioplasty implant and graft
CPT/HCPCS: 99282

== ENCOUNTER 2022-04-07 13:02 | Inpatient (IN) | payer MEDICARE ==
[~2022-04-07] VITALS: Ht 175.3 cm; Wt 82.2 kg
[2022-04-07] MEDS ORDERED: ACETAMINOPHEN 325 MG TAB PO ONE (14:30)
[2022-04-07] MEDS ORDERED: SODIUM CHLORIDE 0.9% 1000ML 1,000 ML IV ONE (14:45)
[2022-04-07 14:56] LABS: BASOPHILS % 0.2 % (0.0-1.0); EOSINOPHILS # (AUTO) 0.1 (0.0-0.4); EOSINOPHILS % 0.7 % (0.0-6.0); HEMATOCRIT 33.9 % (34.2-44.1); HEMOGLOBIN 11.6 g/dL (12.0-16.0); LYMPHOCYTES # (AUTO) 0.3 (1.0-3.2); LYMPHOCYTES % 1.7 % (18.0-39.1); MEAN CORPUSCULAR HGB CONC 34.2 g/dL (31-35); MEAN CORPUSCULAR VOLUME 81.7 fL (81-99); MONOCYTES # (AUTO) 0.4 (0.2-0.8); MONOCYTES % 2.5 % (4.4-11.3); NEUTROPHILS # (AUTO) 15.5 (2.1-6.9); NEUTROPHILS % 93.8 % (38.7-80.0); PLATELET COUNT 158 x10e3/uL (140-360); RED BLOOD COUNT 4.15 x10e6/uL (3.6-5.1); RED CELL DISTRIBUTION WIDTH 15.1 % (11.7-14.4)
[2022-04-07 15:14] LABS: ALBUMIN 3.1 g/dL (3.5-5.0); ALBUMIN/GLOBULIN RATIO 0.8 (0.8-2.0); ANION GAP 14.7 mmol/L (8-16); CALCIUM 7.9 mg/dL (8.4-10.2); CREATININE, SERUM 1.04 mg/dL (0.57-1.11); POTASSIUM 3.7 mmol/L (3.5-5.1)
[2022-04-07] MEDS ORDERED: Vancomycin IV 1 GM in SODIUM CHLORIDE 0.9% 250ML 250 ML IV SCH (16:00)
[2022-04-07] MEDS ORDERED: IOPAMIDOL 370 MG/ML 100 ML INFUS..BTL INJ ONE (16:55)
[2022-04-07] MEDS ORDERED: ACETAMINOPHEN 325 MG TAB ONE (18:00)
[2022-04-07] MEDS ORDERED: SODIUM CHLORIDE 0.9% 1000ML 1,000 ML ONE (18:00)
[2022-04-07 18:24] LABS: CLARITY,URINE SL CLOUDY (CLEAR); COLOR,URINE YELLOW (YELLOW); KETONES,URINE NEGATIVE (NEGATIVE); LEUKOCYTE ESTERASE ,URINE NEGATIVE (NEGATIVE); NITRITE,URINE NEGATIVE (NEGATIVE); PROTEIN,URINE DIPSTICK 2+ (NEGATIVE); URINE UROBILINOGEN 0.2 mg/dL (0.2 - 1)
[2022-04-07 18:30] LABS: BACTERIA,URINE FEW /HPF; EPITHELIAL CELLS,URINE MODERATE /LPF; TRANSITIONAL EPI CELLS,URINE FEW
[2022-04-07] MEDS ORDERED: SODIUM CHLORIDE FLUSH 10 ML SYR INJ PRN (18:45)
[2022-04-07] MEDS ORDERED: ACETAMINOPHEN 325 MG TAB PO PRN (18:45)
[2022-04-07] MEDS ORDERED: ONDANSETRON HCL INJ 2MG/ML 2ML 2 MG/ML VIAL IV PRN (18:45)
[2022-04-07] MEDS ORDERED: DEXTROSE 50% SYRINGE 50 ML IV PRN (20:45)
[2022-04-07] MEDS: INSULIN LISPRO 100 UNIT/1 ML 3ML VIAL SQ SCH (21:00)
[2022-04-07 21:15] VITALS: BP 123/49
[2022-04-07] MEDS ORDERED: ATORVASTATIN CA80 MG PO (21:36)
[2022-04-07] MEDS ORDERED: LOPRESSOR25 MG PO (21:36)
[2022-04-07] MEDS ORDERED: LANTUS 3ML100 UNITS/ SQ (21:36)
[2022-04-07] MEDS ORDERED: CLOPIDOGREL75 MG PO (21:36)
[2022-04-07] MEDS ORDERED: PIOGLITAZONE HC15 MG PO (21:36)
[2022-04-07] MEDS ORDERED: LISINOPRIL5 MG PO (21:36)
[2022-04-07] MEDS ORDERED: WARFARIN SODIUM3 MG PO (21:36)
[2022-04-07] MEDS ORDERED: FAMOTIDINE20 MG PO (21:36)
[2022-04-07] MEDS ORDERED: JANUVIA100 MG PO (21:36)
[2022-04-07] MEDS ORDERED: [UNRECOGNIZED DRUG - OTHER] (21:39)
[2022-04-07 21:52] VITALS: BP 123/49
[2022-04-07] MEDS: HYDROCODONE/APAP 5MG-325MG TAB PO PRN (22:04)
[2022-04-08] VITALS (8 sets, daily range): BP systolic 99–142; BP diastolic 41–76
[2022-04-08] MEDS: ACETAMINOPHEN 325 MG TAB PO PRN ×3 (02:00→14:26)
[2022-04-08] MEDS: HYDROCODONE/APAP 5MG-325MG TAB PO PRN ×3 (05:26→19:56)
[2022-04-08 06:08] LABS: BASOPHILS % 0.3 % (0.0-1.0); EOSINOPHILS % 0.1 % (0.0-6.0); HEMATOCRIT 35.6 % (34.2-44.1); HEMOGLOBIN 11.5 g/dL (12.0-16.0); LYMPHOCYTES # (AUTO) 1.6 (1.0-3.2); LYMPHOCYTES % 12.5 % (18.0-39.1); MEAN CORPUSCULAR HEMOGLOBIN 27.7 pg (28-32); MEAN CORPUSCULAR HGB CONC 32.3 g/dL (31-35); MEAN CORPUSCULAR VOLUME 85.8 fL (81-99); MONOCYTES # (AUTO) 0.5 (0.2-0.8); NEUTROPHILS # (AUTO) 10.3 (2.1-6.9); NEUTROPHILS % 82.4 % (38.7-80.0); PLATELET COUNT 148 x10e3/uL (140-360); RED BLOOD COUNT 4.15 x10e6/uL (3.6-5.1); RED CELL DISTRIBUTION WIDTH 15.4 % (11.7-14.4)
[2022-04-08 06:18] LABS: INR 2.01; PROTHROMBIN TIME 24.3 seconds (11.9-14.5)
[2022-04-08 06:32] LABS: ANION GAP 13.4 mmol/L (8-16); CALCIUM 8.3 mg/dL (8.4-10.2); CREATININE, SERUM 1.08 mg/dL (0.57-1.11); POTASSIUM 3.4 mmol/L (3.5-5.1)
[2022-04-08] MEDS: INSULIN LISPRO 100 UNIT/1 ML 3ML VIAL SQ SCH ×4 (07:30→21:49)
[2022-04-08] MEDS: CLOPIDOGREL BISULFATE 75 MG TAB PO SCH (08:08)
[2022-04-08] MEDS ORDERED: ONDANSETRON HCL 4 MG ORAL DISINTEGRATING TAB PO PRN (08:30)
[2022-04-08 12:43] LABS: INR 1.76; PROTHROMBIN TIME 21.9 seconds (11.9-14.5)
[2022-04-08] MEDS ORDERED: SODIUM CHLORIDE 0.9% 250ML 250 ML ONE (13:13)
[2022-04-08] MEDS ORDERED: POTASSIUM CHLORIDE 20 MEQ TAB CR PO ONE (16:30)
[2022-04-08] MEDS: WARFARIN SOD 3 MG TAB PO SCH (16:53)
[2022-04-08] MEDS: SODIUM CHLORIDE 0.9% 1000ML 1,000 ML IV SCH (17:00)
[2022-04-08] MEDS: METOPROLOL TARTRATE 25 MG TAB PO SCH (17:00)
[2022-04-08] MEDS: FAMOTIDINE 20 MG TAB PO SCH (20:46)
[2022-04-08] MEDS: ATORVASTATIN 40 MG TAB PO SCH (20:46)
[2022-04-09 03:43] VITALS: BP 142/66
[2022-04-09] MEDS: HYDROCODONE/APAP 5MG-325MG TAB PO PRN ×3 (05:29→20:44)
[2022-04-09 05:57] LABS: BASOPHILS # (AUTO) 0.1 (0.0-0.1); BASOPHILS % 0.6 % (0.0-1.0); EOSINOPHILS % 0.4 % (0.0-6.0); HEMATOCRIT 30.8 % (34.2-44.1); HEMOGLOBIN 10.2 g/dL (12.0-16.0); LYMPHOCYTES # (AUTO) 1.2 (1.0-3.2); LYMPHOCYTES % 13.1 % (18.0-39.1); MEAN CORPUSCULAR HEMOGLOBIN 27.7 pg (28-32); MEAN CORPUSCULAR HGB CONC 33.1 g/dL (31-35); MEAN CORPUSCULAR VOLUME 83.7 fL (81-99); MONOCYTES # (AUTO) 0.8 (0.2-0.8); NEUTROPHILS # (AUTO) 6.9 (2.1-6.9); NEUTROPHILS % 76.3 % (38.7-80.0); PLATELET COUNT 147 x10e3/uL (140-360); RED BLOOD COUNT 3.68 x10e6/uL (3.6-5.1); RED CELL DISTRIBUTION WIDTH 15.3 % (11.7-14.4)
[2022-04-09] MEDS: SODIUM CHLORIDE 0.9% 1000ML 1,000 ML IV SCH ×2 (06:16→09:30)
[2022-04-09 06:45] LABS: ANION GAP 12.4 mmol/L (8-16); CALCIUM 8.1 mg/dL (8.4-10.2); CREATININE, SERUM 0.78 mg/dL (0.57-1.11); POTASSIUM 3.4 mmol/L (3.5-5.1)
[2022-04-09] MEDS: INSULIN LISPRO 100 UNIT/1 ML 3ML VIAL SQ SCH ×4 (07:30→21:00)
[2022-04-09 08:00] VITALS: BP 124/43
[2022-04-09 09:00] VITALS: BP 124/43
[2022-04-09] MEDS: CLOPIDOGREL BISULFATE 75 MG TAB PO SCH (09:32)
[2022-04-09] MEDS: METOPROLOL TARTRATE 25 MG TAB PO SCH ×2 (09:33→16:29)
[2022-04-09 11:57] VITALS: BP 105/65
[2022-04-09] MEDS: Ampicillin INJ 2 GM in SODIUM CHLORIDE 0.9% 100 ML IV SCH ×2 (13:03→22:14)
[2022-04-09] MEDS: GABAPENTIN 300 MG CAP PO SCH (14:26)
[2022-04-09 15:56] VITALS: BP 130/63
[2022-04-09] MEDS: WARFARIN SOD 3 MG TAB PO SCH (16:28)
[2022-04-09 20:00] VITALS: BP 147/70
[2022-04-09] MEDS: ATORVASTATIN 40 MG TAB PO SCH (20:42)
[2022-04-09] MEDS: FAMOTIDINE 20 MG TAB PO SCH (20:43)
[2022-04-10] VITALS (9 sets, daily range): BP systolic 110–144; BP diastolic 49–64
[2022-04-10] MEDS: HYDROCODONE/APAP 5MG-325MG TAB PO PRN ×3 (04:10→18:17)
[2022-04-10] MEDS ORDERED: SODIUM CHLORIDE 0.9% 1000ML 1,000 ML ONE (04:45)
[2022-04-10] MEDS: Ampicillin INJ 2 GM in SODIUM CHLORIDE 0.9% 100 ML IV SCH ×3 (05:13→22:00)
[2022-04-10] MEDS: INSULIN LISPRO 100 UNIT/1 ML 3ML VIAL SQ SCH ×4 (07:30→20:39)
[2022-04-10] MEDS: GABAPENTIN 300 MG CAP PO SCH ×2 (08:45→17:06)
[2022-04-10] MEDS: CLOPIDOGREL BISULFATE 75 MG TAB PO SCH (08:45)
[2022-04-10] MEDS: METOPROLOL TARTRATE 25 MG TAB PO SCH ×2 (08:45→17:06)
[2022-04-10] MEDS: WARFARIN SOD 3 MG TAB PO SCH (17:00)
[2022-04-10] MEDS: ATORVASTATIN 40 MG TAB PO SCH (20:45)
[2022-04-10] MEDS: FAMOTIDINE 20 MG TAB PO SCH (20:45)
[2022-04-11] VITALS (8 sets, daily range): BP systolic 108–157; BP diastolic 49–86
[2022-04-11 04:53] LABS: BASOPHILS % 0.6 % (0.0-1.0); EOSINOPHILS # (AUTO) 0.3 (0.0-0.4); EOSINOPHILS % 4.5 % (0.0-6.0); HEMATOCRIT 28.9 % (34.2-44.1); LYMPHOCYTES # (AUTO) 1.8 (1.0-3.2); LYMPHOCYTES % 26.4 % (18.0-39.1); MEAN CORPUSCULAR HGB CONC 34.6 g/dL (31-35); MONOCYTES # (AUTO) 0.8 (0.2-0.8); MONOCYTES % 11.5 % (4.4-11.3); NEUTROPHILS # (AUTO) 3.7 (2.1-6.9); NEUTROPHILS % 56.1 % (38.7-80.0); PLATELET COUNT 171 x10e3/uL (140-360); RED BLOOD COUNT 3.57 x10e6/uL (3.6-5.1); RED CELL DISTRIBUTION WIDTH 15.2 % (11.7-14.4)
[2022-04-11 05:04] LABS: INR 2.28; PROTHROMBIN TIME 26.8 seconds (11.9-14.5)
[2022-04-11] MEDS: Ampicillin INJ 2 GM in SODIUM CHLORIDE 0.9% 100 ML IV SCH ×3 (05:06→21:24)
[2022-04-11] MEDS: HYDROCODONE/APAP 5MG-325MG TAB PO PRN ×2 (05:06→13:49)
[2022-04-11 05:11] LABS: ANION GAP 11.2 mmol/L (8-16); CALCIUM 7.5 mg/dL (8.4-10.2); CREATININE, SERUM 0.75 mg/dL (0.57-1.11); POTASSIUM 3.2 mmol/L (3.5-5.1)
[2022-04-11] MEDS: INSULIN LISPRO 100 UNIT/1 ML 3ML VIAL SQ SCH ×4 (07:30→21:29)
[2022-04-11] MEDS: GABAPENTIN 300 MG CAP PO SCH ×2 (09:14→17:00)
[2022-04-11] MEDS: METOPROLOL TARTRATE 25 MG TAB PO SCH ×2 (09:15→16:48)
[2022-04-11] MEDS: CLOPIDOGREL BISULFATE 75 MG TAB PO SCH (09:15)
[2022-04-11] MEDS: MULTIVITAMINS/MINERALS TAB PO SCH (09:15)
[2022-04-11] MEDS ORDERED: POTASSIUM CHLORIDE 20 MEQ TAB CR PO ONE (15:30)
[2022-04-11] MEDS: WARFARIN SOD 3 MG TAB PO SCH (16:47)
[2022-04-11] MEDS: FAMOTIDINE 20 MG TAB PO SCH (21:23)
[2022-04-11] MEDS: ATORVASTATIN 40 MG TAB PO SCH (21:24)
[2022-04-12] VITALS: BP 107/93
[2022-04-12] MEDS: HYDROCODONE/APAP 5MG-325MG TAB PO PRN ×2 (01:45→09:14)
[2022-04-12 04:00] VITALS: BP 132/65
[2022-04-12] MEDS: Ampicillin INJ 2 GM in SODIUM CHLORIDE 0.9% 100 ML IV SCH (05:24)
[2022-04-12] MEDS: INSULIN LISPRO 100 UNIT/1 ML 3ML VIAL SQ SCH (07:30)
[2022-04-12 08:21] VITALS: BP 146/55
[2022-04-12 08:45] VITALS: BP 146/55
[2022-04-12] MEDS: CLOPIDOGREL BISULFATE 75 MG TAB PO SCH (09:04)
[2022-04-12] MEDS: MULTIVITAMINS/MINERALS TAB PO SCH (09:04)
[2022-04-12] MEDS: GABAPENTIN 300 MG CAP PO SCH (09:05)
[2022-04-12] MEDS: METOPROLOL TARTRATE 25 MG TAB PO SCH (09:05)
[2022-04-12] MEDS ORDERED: AMPICILLIN TRI500 MG PO (10:54)
[2022-04-12] MEDS ORDERED: ONDANSETRON ODT4 MG PO (10:54)
[2022-04-12] MEDS ORDERED: ACETAMINOPHEN325 M1 PO (10:54)
[2022-04-12] MEDS ORDERED: Multivitamins/Minerals PO (10:54)
[2022-04-12] MEDS ORDERED: ACETAMINOPHEN-1 EAC4 PO (11:11)
[2022-04-12 13:40] VITALS: BP 154/64
== END 2022-04-12 13:13 | disposition home or self-care (01) | DRG 872 ==
LOC: ER 14:10 → ERHOLD 18:45 → MED/SURG2 21:26
PROVIDERS: ADMIT Internal Medicine; ATTEND Internal Medicine
DX: A40.1 Sepsis due to streptococcus, group B (principal); E87.2 Acidosis; I25.10 Atherosclerotic heart disease of native coronary artery without angina pectoris; E78.5 Hyperlipidemia, unspecified; I25.2 Old myocardial infarction; Z87.891 Personal history of nicotine dependence; E11.65 Type 2 diabetes mellitus with hyperglycemia; M54.50 Low back pain, unspecified; E87.6 Hypokalemia; M48.062 Spinal stenosis, lumbar region with neurogenic claudication; Z95.5 Presence of coronary angioplasty implant and graft; I73.9 Peripheral vascular disease, unspecified; E11.40 Type 2 diabetes mellitus with diabetic neuropathy, unspecified; Z79.899 Other long term (current) drug therapy; I11.0 Hypertensive heart disease with heart failure; I50.9 Heart failure, unspecified; Z79.4 Long term (current) use of insulin
CPT/HCPCS: 36415; 71045; 72131; 74177; 80048; 80053; 81001; 82550; 82948; 83605; 85025; 85610; 87040; 87071; 87086; 87205; 93005; 93306; 93925; 96372; 99284; J0696; J2185; J7030; J7050; Q9967

== ENCOUNTER 2022-06-03 12:23 | Emergency (ER) | payer MEDICARE ==
[~2022-06-03] VITALS: Ht 175.3 cm; Wt 82.1 kg
[~2022-06-03 12:23] MED LIST: ACETAMINOPHEN-1 EAC4 PO; ACETAMINOPHEN325 M1 PO; AMPICILLIN TRI500 MG PO; ATORVASTATIN CA80 MG PO; CLOPIDOGREL75 MG PO; FAMOTIDINE20 MG PO; JANUVIA100 MG PO; LANTUS 3ML100 UNITS/ SQ; LISINOPRIL5 MG PO; LOPRESSOR25 MG PO; Multivitamins/Minerals PO; ONDANSETRON ODT4 MG PO; PIOGLITAZONE HC15 MG PO; WARFARIN SODIUM3 MG PO; [UNRECOGNIZED DRUG - OTHER]
[2022-06-03] MEDS ORDERED: CEFTRIAXONE 1 GM VIAL IM ONE (13:30)
[2022-06-03] MEDS ORDERED: ONDANSETRON HCL INJ 2MG/ML 2ML 2 MG/ML VIAL IV STA (13:32)
[2022-06-03] MEDS ORDERED: ACETAMINOPHEN 325 MG TAB PO ONE (13:45)
[2022-06-03] MEDS ORDERED: SODIUM CHLORIDE 0.9% 1000ML 1,000 ML IV SCH (13:45)
[2022-06-03 14:01] LABS: BASOPHILS % 0.2 % (0.0-1.0); EOSINOPHILS % 0.2 % (0.0-6.0); HEMATOCRIT 37.6 % (34.2-44.1); HEMOGLOBIN 12.4 g/dL (12.0-16.0); LYMPHOCYTES # (AUTO) 1.3 (1.0-3.2); LYMPHOCYTES % 27.7 % (18.0-39.1); MEAN CORPUSCULAR HEMOGLOBIN 27.2 pg (28-32); MEAN CORPUSCULAR VOLUME 82.5 fL (81-99); MONOCYTES # (AUTO) 0.3 (0.2-0.8); MONOCYTES % 7.4 % (4.4-11.3); NEUTROPHILS # (AUTO) 2.9 (2.1-6.9); NEUTROPHILS % 64.1 % (38.7-80.0); PLATELET COUNT 139 x10e3/uL (140-360); RED BLOOD COUNT 4.56 x10e6/uL (3.6-5.1); RED CELL DISTRIBUTION WIDTH 16.2 % (11.7-14.4)
[2022-06-03 14:29] LABS: ALANINE AMINOTRANSFERASE 16 IU/L (0-55); ALBUMIN 3.3 g/dL (3.5-5.0); ALBUMIN/GLOBULIN RATIO 0.8 (0.8-2.0); ALKALINE PHOSPHATASE 62 IU/L (40-150); ANION GAP 15.1 mmol/L (8-16); BLOOD UREA NITROGEN 24 mg/dL (7-26); BUN/CREATININE RATIO 19 (6-25); CALCIUM 8.5 mg/dL (8.4-10.2); CARBON DIOXIDE 20 mmol/L (22-29); CHLORIDE 108 mmol/L (98-107); CREATININE, SERUM 1.28 mg/dL (0.57-1.11); GLUCOSE 122 mg/dL (74-118); POTASSIUM 4.1 mmol/L (3.5-5.1); SODIUM 139 mmol/L (136-145)
[2022-06-03] MEDS ORDERED: ONDANSETRON ODT4 MG PO (16:57)
== END 2022-06-03 18:21 | disposition home or self-care (01) ==
LOC: ER 12:30
DX: R50.9 Fever, unspecified (principal); U07.1 COVID-19; B34.9 Viral infection, unspecified; N28.9 Disorder of kidney and ureter, unspecified; I10 Essential (primary) hypertension; E11.65 Type 2 diabetes mellitus with hyperglycemia; E78.5 Hyperlipidemia, unspecified; I25.10 Atherosclerotic heart disease of native coronary artery without angina pectoris; I25.2 Old myocardial infarction; Z95.5 Presence of coronary angioplasty implant and graft
CPT/HCPCS: 0223U; 36415; 71045; 80053; 83605; 83880; 84484; 85025; 87040; 99284; J0456; J0696; J2405; J7030; J7050